=== PATIENT | male | born 1950 | race Caucasian/White ===

== ENCOUNTER → 2017-02-07 | Outpatient (CLI) | payer OTHER ==
--- NOTE | 2017-02-07 13:10 | MR ---
EXAMINATION TYPE: MR lumbar spine wo con DATE OF EXAM: 02/07/2017 12:37 PM COMPARISON: NONE HISTORY: 66-year-old male with low back pain TECHNIQUE: Multiplanar, multisequence images of the lumbar spine were acquired. FINDINGS: Vertebral body heights are preserved. Scattered chronic Schmorl's nodes are present. No suspicious bone marrow replacement. However, there is edematous Modic type I endplate change at L5 -S1 associated with moderate degenerative disc height loss, disc desiccation, vacuum phenomenon, and disc bulging. Additional variable mild disc desiccation throughout the lumbar spine and bulging discs. There is facet arthropathy mid to lower lumbar spine with bilateral L5 pars defects with grade 2 ante rolisthesis at L5-S1. The conus medullaris is normal. At T12-L1, no spinal canal or neuroforaminal stenosis. At L1-L2, mild diffuse disc bulge minimally narrowing the inferior right neural foramen. No significa nt spinal canal or neuroforaminal stenosis. At L2-L3, there is mild diffuse disc bulge which slightly impresses on the ventral thecal sac but parker s not cause any significant spinal canal stenosis. There is mild right and minimal inferior left neur oforaminal narrowing. At L3-L4, diffuse disc bulge with facet degenerative change. Changes result in mild to moderate bilat eral neuroforaminal stenosis without spinal canal stenosis. At L4-L5, diffuse disc bulge with facet degenerative change. Changes result in mild left and mild-to- moderate right neuroforaminal stenosis without spinal canal stenosis. At L5-S1, there is grade 2 anterolisthesis with uncovering of the posterior intervertebral disc and f acet degenerative change. Changes result in moderate bilateral neuroforaminal stenoses, greater on th e left. No spinal canal stenosis. No prevertebral or paravertebral soft tissue abnormality. IMPRESSION: 1. Bilateral L5 pars defects with a grade 2 anterolisthesis at L5-S1 and associated moderate degenera tive disc disease and edematous Modic type I endplate change at this level. There is moderate bilater al neuroforaminal stenosis here slightly greater on the left. 2. Variable mild multilevel degenerative disc disease and scattered facet arthropathy. Changes result in variable mild neuroforaminal stenoses as outlined above, mild to moderate near foraminal stenoses at L3-L4 and L4-L5.
== END ==
LOC: RADMRIMAIN 11:55
PROVIDERS: ATTEND Nurse Practitioner
DX: M43.17 Spondylolisthesis, lumbosacral region (principal); M51.37 Other intervertebral disc degeneration, lumbosacral region; M99.73 Connective tissue and disc stenosis of intervertebral foramina of lumbar region; M46.96 Unspecified inflammatory spondylopathy, lumbar region
CPT/HCPCS: 72148

== ENCOUNTER → 2023-06-06 | Outpatient (CLI) | payer OTHER ==
--- NOTE | 2023-06-06 12:26 | XR ---
EXAMINATION TYPE: XR shoulder complete RT DATE OF EXAM: 06/06/2023 COMPARISON: NONE HISTORY: Pain TECHNIQUE: Three views are submitted. FINDINGS: The osseous structures are intact. There is no acute fracture or dislocation. Diffuse osteopenia wit h moderate to severe AC joint arthropathy with spur extending along the inferior margin. Linear subse gmental consolidation right lung base most typical of atelectasis. IMPRESSION: 1. AC joint arthropathy with a spur noted inferiorly correlate for impingement of the rotator cuff.
== END | disposition home or self-care (01) ==
LOC: RADXRMAIN 11:05
PROVIDERS: ATTEND Social Worker Clinical
DX: M19.011 Primary osteoarthritis, right shoulder (principal)

== ENCOUNTER → 2023-06-30 | Outpatient (CLI) | payer OTHER ==
--- NOTE | 2023-06-30 13:13 | XR ---
EXAMINATION TYPE: XR hand complete bilateral DATE OF EXAM: 06/30/2023 CLINICAL HISTORY: pain TECHNIQUE: Frontal, lateral and oblique images of the bilateral hands are obtained. COMPARISON: None. FINDINGS: There is no acute fracture/dislocation evident. Moderate degenerative change involving the first carpal metacarpal joints bilaterally with bony sclerosis and mild fragmentation noted. The ove rlying soft tissue appears unremarkable. IMPRESSION: There is no acute fracture or dislocation ICD 10 NO FRACTURE, INITIAL EVALUATION
--- NOTE | 2023-07-04 14:28 | MR ---
EXAMINATION TYPE: MR shoulder RT wo con DATE OF EXAM: 06/30/2023 12:30 PM COMPARISON: NONE HISTORY: Right shoulder pain TECHNIQUE: Multiplanar multispin echo imaging of the right shoulder was performed. FINDINGS: Rotator cuff : Full thickness retracted tear of the supraspinatus tendon with fluid filled gap 3.4 cm . Partial tear of the infraspinatus tendon. Subscapularis component is intact. Bursa: No bursal effusion or thickening is seen. Musculature: There is no muscular tear, contusion, or atrophy. Acromioclavicular joint : Elevation of the humeral head relative to the central glenoid axis. Marked narrowing of the subacromial joint space. Moderate AC joint arthropathy. Osseous structures : There are no fractures or regions of abnormal bone marrow signal intensity. Mild cystic degenerative change greater humeral tuberosity. Long biceps tendon : The biceps tendon is normally situated within the bicipital groove. No complete or partial biceps tendon tear is present. Glenohumeral Joint fluid : Subcoracoid fluid collection measures 3.1 x 1.3 cm and may reflect a gangl ion cyst. Cartilage and Bone : No focal hyaline cartilage defects are noted. No Hill-Sachs, reverse Hill-Sachs, or bony Bankart lesions are seen. Labrum : There are no SLAP or soft tissue Bankart lesions. No paralabral cysts are seen. OTHER FINDINGS : none IMPRESSION: 1. Complete retracted tear of the supraspinatus tendon with partial tear of the infraspinatus tendon. Marked subacromial joint space narrowing. 2. Probable ganglion cyst subcoracoid region.
== END | disposition home or self-care (01) ==
LOC: RADMRIMAIN 11:06
PROVIDERS: ATTEND Family Medicine
DX: M75.121 Complete rotator cuff tear or rupture of right shoulder, not specified as traumatic (principal); M79.641 Pain in right hand; M79.642 Pain in left hand

== ENCOUNTER 2023-07-18 07:19 | Day surgery (SDC) | payer MEDICARE, OTHER ==
[2023-07-13 16:17] VITALS: BMI 35.2
[2023-07-18] MEDS ORDERED: LIDOCAINE 1% (10MG/ML) FOR IV START INTRADERMA PRN (07:34)
[2023-07-18] MEDS ORDERED: LACTATED RINGERS 1,000 ML IV SCH (07:34)
[2023-07-18 07:47] VITALS: TEMP 98.1
[2023-07-18] MEDS ORDERED: PROPOFOL 10 MG/ML 20 ML VIAL IV ONE (08:31)
--- NOTE | 2023-07-18 08:50 | P.PCN ---
Date of Procedure: 07/18/23 Procedure(s) Performed: BRIEF HISTORY: Patient is a 73-year-old pleasant white male scheduled for an elective colonoscopy as a part of evaluation of prior history of colon polyps. Last colonoscopy was 5 years ago. PROCEDURE PERFORMED: Colonoscopy with snare polypectomy. PREOPERATIVE DIAGNOSIS: History of colon polyps. IV sedation per Anesthesia. PROCEDURE: After informed consent was obtained, the patient, was brought into the endoscopy unit. IV sedation was administered by Anesthesia under continuous monitoring. Digital rectal examination was normal. Initially the Olympus CF-160 flexible video colonoscope was then inserted in the rectum, gradually advanced into the cecum without any difficulty. Careful examination was performed as the scope was gradually being withdrawn. Ileocecal valve and the appendiceal orifice were visualized and appeared normal. Prep was excellent. Mucosa of the cecum, normal. In the ascending colon there was a 5 mm and 7 mm polyp removed by cold snare polypectomy. In the descending colon there was a 4 mm and 6 mm sessile polyp removed by cold snare polypectomy. Rest of the ascending colon, transverse colon, descending colon, sigmoid colon, and rectum appeared normal. Scattered sigmoid diverticulosis. Retroflexion was performed in the rectum and no lesions were seen. The patient tolerated the procedure well. IMPRESSION: 5 mm and 7 mm ascending colon polyp status post polypectomy 4 mm and 6 mm descending colon polyps status post polypectomy Scattered sigmoid diverticulosis RECOMMENDATIONS: Findings of this examination were discussed with the patientas well as a his family. He was advised to follow with the biopsy results. If the biopsy result adenoma he can have a repeat colonoscopy in 3 years.].
[2023-07-18 09:10] VITALS: PULSE 56; RESP 16
[2023-07-18 09:26] VITALS: BP 142/80
== END 2023-07-18 09:37 ==
LOC: ORWHC2ENDO 07:19
PROVIDERS: ATTEND Internal Medicine Gastroenterology
DX: Z12.11 Encounter for screening for malignant neoplasm of colon (principal); D12.4 Benign neoplasm of descending colon; D12.3 Benign neoplasm of transverse colon; K21.9 Gastro-esophageal reflux disease without esophagitis; K57.30 Diverticulosis of large intestine without perforation or abscess without bleeding; E78.5 Hyperlipidemia, unspecified; F32.A Depression, unspecified; Z86.010 Personal history of colon polyps; Z79.899 Other long term (current) drug therapy; Z87.891 Personal history of nicotine dependence; Z88.8 Allergy status to other drugs, medicaments and biological substances
CPT/HCPCS: 88305; 45385; J2704

== ENCOUNTER → 2023-08-03 | Outpatient (CLI) | payer MEDICARE ==
--- NOTE | 2023-08-03 16:16 | XR ---
"EXAMINATION TYPE: XR ribs RT DATE OF EXAM: 08/03/2023 COMPARISON: NONE HISTORY: Pain TECHNIQUE: 5 views of the right ribs are submitted FINDINGS: Hypertrophic AC joint arthropathy. Right lower lobe subsegmental consolidation. There are d eformities involving the right third and fourth ribs anterolaterally. A deformity involving the anter ior margin of the right sixth rib there is a lucency involving the posterior lateral right eighth rib . IMPRESSION: 1. Lucency involving the posterior lateral right eighth rib, anterior right sixth rib and anterior ma rgins of the right third and fourth rib correlate for point tenderness for acute fracture. 2. Right lower lobe consolidation and small effusion A Yellow level critical message alert has been initiated for Willard Berg MD via the [employer] | Critical Results System on 08/03/2023 4:14 PM. This message alert has been sent to Willard culp MD via the preferences provided by the clinician for the receipt of Radiology Critical Findings. Brenden essage ID [id number]."
== END | disposition home or self-care (01) ==
LOC: RADXRMAIN 15:26
PROVIDERS: ATTEND Internal Medicine
DX: R07.81 Pleurodynia (principal); J90 Pleural effusion, not elsewhere classified; M89.8X8 Other specified disorders of bone, other site

== ENCOUNTER → 2024-05-20 | Outpatient (CLI) | payer OTHER ==
--- NOTE | 2024-05-20 15:24 | XR ---
EXAMINATION TYPE: XR knee complete bilateral DATE OF EXAM: 05/20/2024 2:57 PM CLINICAL INDICATION:Male, 74 years old with history of M25.569 PAIN IN UNSPECIFIED KNEE; [facility] COMPARISON: None. TECHNIQUE: XR knee complete bilateral; examined in Frontal, lateral and oblique projections. FINDINGS: No evidence of any acute osseous pathology, soft tissue swelling, or joint effusion is no mino. Tricompartmental osteophyte formation involving the femoral condyles, tibial plateau and patella . Mild joint space narrowing. IMPRESSION: 1. No acute osseous pathology. 2. Moderate tricompartmental osteoarthritic changes.
== END | disposition home or self-care (01) ==
LOC: RADXRMAIN 14:17
PROVIDERS: ATTEND Family Medicine
DX: M17.0 Bilateral primary osteoarthritis of knee (principal)

== ENCOUNTER 2024-12-12 17:21 | Observation (INO) | payer MEDICARE ==
--- NOTE | 2024-12-12 17:43 | ED ---
General Adult HPI - General Chief complaint: Fall Stated complaint: Fall Time Seen by Provider: 12/12/24 17:25 Source: patient, EMS, RN notes reviewed Mode of arrival: EMS Limitations: no limitations - History of Present Illness Initial comments: Patient is a 74-year-old male presenting to the emergency department with concern for fall. Patient was standing on a chair when he lost his balance and fell. Patient landed on his back and then struck his head. No loss of consciousness. No syncope. No neck or back pain. No chest pain or dyspnea. No abdominal pain. No extremity injury. Patient denies any history of dysrhythmia. No history of A-fib. Patient denies any blood thinner use. - Related Data Home Medications Medication Instructions Recorded Confirmed Dextroamphetamine/Amphetamine 10 mg PO DAILY 07/13/23 07/18/23 [Adderall Xr 10 mg Capsule] Fluticasone Nasal [place] [Flonase 1 spray EA NOSTRIL DAILY 07/13/23 07/18/23 Nasal [place]] Pravastatin Sodium [Pravachol] 20 mg PO HS 07/13/23 07/18/23 busPIRone HCL [Buspar] 15 mg PO BID 07/13/23 07/18/23 Allergies Allergy/AdvReac Type Severity Reaction Status Date / Time erythromycin base Allergy Rash/Hives Verified 12/12/24 17:38 Review of Systems ROS Statement: Those systems with pertinent positive or pertinent negative responses have been documented in the HPI. ROS Other: All systems not noted in ROS Statement are negative. Constitutional: Denies: fever Eyes: Denies: eye pain ENT: Denies: ear pain Respiratory: Denies: dyspnea Cardiovascular: Denies: chest pain, palpitations Endocrine: Denies: fatigue Gastrointestinal: Denies: abdominal pain Neurological: Denies: headache, weakness, confusion Past Medical History Past Medical History: Hyperlipidemia, Skin Disorder Additional Past Medical History / Comment(s): diverticulitis History of Any Multi-Drug Resistant Organisms: None Reported Past Surgical History: Appendectomy, Cholecystectomy, Hernia Repair Additional Past Surgical History / Comment(s): Egd, colonoscopy, deviated septum hemorrhoidectomy Past Anesthesia/Blood Transfusion Reactions: No Reported Reaction Additional Past Anesthesia/Blood Transfusion Reaction / Comment(s): no blood transfusion Past Psychological History: No Psychological Hx Reported Smoking Status: Never smoker - Past Family History Father Additional Family Medical History / Comment(s): CLL General Exam Limitations: no limitations General appearance: alert, in no apparent distress Head exam: Present: atraumatic, normocephalic Eye exam: Present: normal appearance, PERRL, EOMI Neck exam: Present: normal inspection. Absent: tenderness Respiratory exam: Present: normal lung sounds bilaterally Cardiovascular Exam: Present: tachycardia, irregular rhythm GI/Abdominal exam: Present: soft. Absent: tenderness Extremities exam: Present: normal inspection. Absent: full ROM, tenderness Neurological exam: Present: alert, oriented X3, CN II-XII intact. Absent: motor sensory deficit Expanded Neurological exam: Present: protecting the airway Speech: Present: fluid speech Cranial nerves: EOM's Intact: Normal Motor strength exam: RUE: 5, LUE: 5, RLE: 5, LLE: 5 Eye Response: (4) open spontaneously Motor Response: (6) obeys commands Verbal Response: (5) oriented Psychiatric exam: Present: normal affect, normal mood Skin exam: Present: normal color Course Vital Signs 12/12/24 12/12/24 17:34 19:15 Temperature 98.1 F Pulse Rate 102 H 102 H Respiratory 18 18 Rate Blood Pressure 119/92 113/74 O2 Sat by Pulse 99 97 Oximetry EKG Findings - EKG Results: EKG: interpreted by ERMD (PVCs present. Nonspecific T waves. Premature complexes also present), normal axis EKG shows: tachycardia, atrial fibrillation Medical Decision Making - Medical Decision Making EKG #2 interpreted by myself also shows A-fib with a rate of 101. Normal axis. Nonspecific T waves. Normal QRS. Premature complexes also present Was pt. sent in by a medical professional or institution (, PA, COMMERCIAL ACCOUNT MANAGER, urgent care, hospital, or long term...) When possible be specific @ -No Did you speak to anyone other than the patient for history (EMS, parent, family, police, friend...)? What history was obtained from this source @ -No Did you review nursing and triage notes (agree or disagree)? Why? @ -I reviewed and agree with nursing and triage notes Were old charts reviewed (outside hosp., previous admission, EMS record, old EKG, old radiological studies, urgent care reports/EKG's, long term records)? Report findings @ -Previous outpatient x-ray also shows elevated left hemidiaphragm Differential Diagnosis (chest pain, altered mental status, abdominal pain women, abdominal pain men, vaginal bleeding, weakness, fever, dyspnea, syncope, head ache, dizziness, GI bleed, back pain, seizure, CVA, palpatations, mental health, musculoskeletal)? @ -Differential Palpitations Ventricular arrhythmias, atrial arrhythmias, myocardial infarction, anemia, thyrotoxicosis, electrolyte imbalance, hypokalemia, pulmonary embolism, pulmonary disease, drugs, alcohol, anxiety, stress.... This is not meant to be an all-inclusive list. EKG interpreted by me (3pts min.). @ -As above X-rays interpreted by me (1pt min.). @ -Chest x-ray shows elevated left hemidiaphragm CT interpreted by me (1pt min.). @ -CT brain and cervical spine without acute abnormality U/S interpreted by me (1pt. min.). @ -None done What testing was considered but not performed or refused? (CT, X-rays, U/S, labs)? Why? @ -None What meds were considered but not given or refused? Why? @ -Anticoagulation held at this time secondary to patient just has had prior to Did you discuss the management of the patient with other professionals (professionals i.e. , PA, COMMERCIAL ACCOUNT MANAGER, lab, RT, psych nurse, social work msw, turbo generator oiler, teacher, chief growth officer, catalytic case operator)? Give summary @ -Dr. Oseguera who will admit covering Dr. Sarkar Was smoking cessation discussed for >3mins.? @ -No Was critical care preformed (if so, how long)? @ -No Were there social determinants of health that impacted care today? How? (Homelessness, low income, unemployed, alcoholism, drug addiction, transportation, low edu. Level, literacy, decrease access to med. care, long-term, rehab)? @ -No Was there de-escalation of care discussed even if they declined (Discuss DNR or withdrawal of care, Hospice)? DNR status @ -No What co-morbidities impacted this encounter? (DM, HTN, Smoking, COPD, CAD, Cancer, CVA, ARF, Chemo, Hep., AIDS, mental health diagnosis, sleep apnea, morbid obesity)? @ -None Was patient admitted / discharged? Hospital course, mention meds given and route, prescriptions, significant lab abnormalities, going to OR and other pertinent info. @ -Patient presents with fall and head injury, over age [address] unremarkable however patient has new onset A-fib. Patient reevaluated and updated. Patient will be admitted with cardiac consult and echo. Admission orders written Undiagnosed new problem with uncertain prognosis? @ -No Drug Therapy requiring intensive monitoring for toxicity (Heparin, Nitro, Insulin, Cardizem)? @ -No Were any procedures done? @ -No Diagnosis/symptom? @ -Head injury, new onset A-fib Acute, or Chronic, or Acute on Chronic? @ -Acute, acute threat to cardiac function t Uncomplicated (without systemic symptoms) or Complicated (systemic symptoms)? @ -Default Side effects of treatment? @ -No Exacerbation, Progression, or Severe Exacerbation? @ -No Poses a threat to life or bodily function? How? (Chest pain, USA, MD, pneumonia, PE, COPD, DKA, ARF, appy, cholecystitis, CVA, Diverticulitis, Homicidal, Suicidal, threat to staff... and all critical care pts) @ -Threat to cardiac function - Lab Data Result diagrams: 12/12/24 17:46 12/12/24 17:46 Lab Results 12/12/24 12/12/24 12/12/24 Range/Units 17:46 17:46 17:46 WBC 7.1 (3.8-10.6) k/uL RBC 4.78 (4.30-5.90) m/uL Hgb 14.5 (13.0-17.5) gm/dL Hct 44.5 (39.0-53.0) % MCV 92.9 (80.0-100.0) fL MCH 30.3 (25.0-35.0) pg MCHC 32.5 (31.0-37.0) g/dL RDW 12.9 (11.5-15.5) % Plt Count 325 (150-450) k/uL MPV 6.6 Neutrophils % 69 % Lymphocytes % 20 % Monocytes % 6 % Eosinophils % 3 % Basophils % 1 % Neutrophils # 4.9 (1.3-7.7) k/uL Lymphocytes # 1.4 (1.0-4.8) k/uL Monocytes # 0.4 (0-1.0) k/uL Eosinophils # 0.2 (0-0.7) k/uL Basophils # 0.1 (0-0.2) k/uL PT 11.4 (10.0-12.5) sec INR 1.0 (<1.2) APTT 25.1 (22.0-30.0) sec Sodium 136 L (137-145) mmol/L Potassium 4.5 (3.5-5.1) mmol/L Chloride 101 (98-107) mmol/L Carbon Dioxide 27 (22-30) mmol/L Anion Gap 8 mmol/L BUN 23 H (9-20) mg/dL Creatinine 1.07 (0.66-1.25) mg/dL Est GFR (CKD-EPI)AfAm 78 (>60 ml/min/1.73 sqM) Est GFR (CKD-EPI)NonAf 68 (>60 ml/min/1.73 sqM) Glucose 99 (74-99) mg/dL Calcium 9.7 (8.4-10.2) mg/dL Magnesium 2.1 (1.6-2.3) mg/dL Total Bilirubin 0.6 (0.2-1.3) mg/dL AST 30 (17-59) U/L ALT 37 (4-49) U/L Alkaline Phosphatase 90 (38-126) U/L Troponin I (0.000-0.034) ng/mL Total Protein 7.1 (6.3-8.2) g/dL Albumin 4.1 (3.5-5.0) g/dL TSH 1.240 (0.465-4.680) mIU/L Free T4 1.04 (0.78-2.19) ng/dL 12/12/24 Range/Units 17:46 WBC (3.8-10.6) k/uL RBC (4.30-5.90) m/uL Hgb (13.0-17.5) gm/dL Hct (39.0-53.0) % MCV (80.0-100.0) fL MCH (25.0-35.0) pg MCHC (31.0-37.0) g/dL RDW (11.5-15.5) % Plt Count (150-450) k/uL MPV Neutrophils % % Lymphocytes % % Monocytes % % Eosinophils % % Basophils % % Neutrophils # (1.3-7.7) k/uL Lymphocytes # (1.0-4.8) k/uL Monocytes # (0-1.0) k/uL Eosinophils # (0-0.7) k/uL Basophils # (0-0.2) k/uL PT (10.0-12.5) sec INR (<1.2) APTT (22.0-30.0) sec Sodium (137-145) mmol/L Potassium (3.5-5.1) mmol/L Chloride (98-107) mmol/L Carbon Dioxide (22-30) mmol/L Anion Gap mmol/L BUN (9-20) mg/dL Creatinine (0.66-1.25) mg/dL Est GFR (CKD-EPI)AfAm (>60 ml/min/1.73 sqM) Est GFR (CKD-EPI)NonAf (>60 ml/min/1.73 sqM) Glucose (74-99) mg/dL Calcium (8.4-10.2) mg/dL Magnesium (1.6-2.3) mg/dL Total Bilirubin (0.2-1.3) mg/dL AST (17-59) U/L ALT (4-49) U/L Alkaline Phosphatase (38-126) U/L Troponin I <0.012 (0.000-0.034) ng/mL Total Protein (6.3-8.2) g/dL Albumin (3.5-5.0) g/dL TSH (0.465-4.680) mIU/L Free T4 (0.78-2.19) ng/dL Disposition Clinical Impression: New onset a-fib Disposition: ADMITTED IP TO THIS HOSP Is patient prescribed a controlled substance at d/c from ED?: No Referrals: Vilma Hughes MD [Primary Care Provider] - 1-2 days Time of Disposition: 20:15
[2024-12-12 17:53] LABS: Basophils # (A) 0.1 k/uL (0-0.2); Basophils % (A) 1 %; Eosinophils # (A) 0.2 k/uL (0-0.7); Eosinophils % (A) 3 %; HCT 44.5 % (39.0-53.0); HGB 14.5 gm/dL (13.0-17.5); Lymphocytes # (A) 1.4 k/uL (1.0-4.8); Lymphocytes % (A) 20 %; MCH 30.3 pg (25.0-35.0); MCHC 32.5 g/dL (31.0-37.0); MCV 92.9 fL (80.0-100.0); Mean Platelet Volume 6.6; Monocytes # (A) 0.4 k/uL (0-1.0); Monocytes % (A) 6 %; Neutrophils # (A) 4.9 k/uL (1.3-7.7); Neutrophils % (A) 69 %; Platelet Count 325 k/uL (150-450); RBC 4.78 m/uL (4.30-5.90); RDW 12.9 % (11.5-15.5); WBC 7.1 k/uL (3.8-10.6)
[2024-12-12 18:02] LABS: Partial Thromboplastin Time 25.1 sec (22.0-30.0); Prothrombin Time 11.4 sec (10.0-12.5)
[2024-12-12 18:09] LABS: ALT 37 U/L (4-49); AST 30 U/L (17-59); African American GFR (CKD) 78 (>60 ml/min/1.73 sqM); Albumin 4.1 g/dL (3.5-5.0); Alkaline Phosphatase 90 U/L (38-126); Anion Gap 8 mmol/L; Blood Urea Nitrogen 23 mg/dL (9-20); Calcium 9.7 mg/dL (8.4-10.2); Carbon Dioxide 27 mmol/L (22-30); Chloride 101 mmol/L (98-107); Glucose 99 mg/dL (74-99); Magnesium 2.1 mg/dL (1.6-2.3); Non-African American GFR(CKD) 68 (>60 ml/min/1.73 sqM); Potassium 4.5 mmol/L (3.5-5.1); Sodium 136 mmol/L (137-145); Total Bilirubin 0.6 mg/dL (0.2-1.3); Total Protein 7.1 g/dL (6.3-8.2)
--- NOTE | 2024-12-12 18:34 | CT ---
EXAMINATION TYPE: CT brain sera wo con DATE OF EXAM: 12/12/2024 6:15 PM COMPARISON: None. CLINICAL INDICATION: Male, 74 years old with history of fall, Fall, hit back of head, No LOC., pain TECHNIQUE: CT of the brain is performed utilizing 3 mm thick sections through the posterior fossa and 3 mm thick sections through the remaining calvarium. Study is performed within 24 hours of arrival to the hospital. Contrast used: mL of , (none if empty) CT DLP: 1598.6 mGycm, Automated exposure control for dose reduction was used. FINDINGS: No abnormal hyperdensity is present to suggest an acute intracranial hemorrhage. No mass lesion is evident. No acute infarcts are evident. Ventricles and sulci are appropriate for the patient age. There is an air-fluid level within the left maxillary sinus. Correlate for acute left maxillary sinus itis. Remaining paranasal sinuses and mastoid air cells are clear IMPRESSIONS: 1. No acute intracranial process. Follow-up MRI can be performed as clinically indicated. CT cervical spine. COMPARISON: None TECHNIQUE: CT of the cervical spine is performed in the axial plane at 2 mm thick sections. Reconstr ucted images in the coronal, and sagittal plane are reviewed on the computer. FINDINGS: No acute fractures are evident. Spina bifida occulta of C1 is present. Vertebral body alignment is normal. C5-6 disc space narrowing is present. Milder disc space is present posteriorly C6-7 C7-T1 Vertebral body heights are preserved. No spinal canal stenosis is evident. No neural foraminal stenosis is evident. IMPRESSION: 1. No acute osseous abnormality cervical spine. 2. Degenerative disc changes C5-6. [facility], Workstation: [facility], 12/12/2024 6:32 PM
[2024-12-12 19:06] LABS: T4, Free (Free Thyroxine) 1.04 ng/dL (0.78-2.19)
--- NOTE | 2024-12-12 19:26 | XR ---
EXAMINATION TYPE: XR chest 2V DATE OF EXAM: 12/12/2024 6:59 PM COMPARISON: 03/01/2024 CLINICAL INDICATION: Male, 74 years old with history of dysrhythmia, TECHNIQUE: XR chest 2V view(s) obtained. FINDINGS: The heart size is normal. The pulmonary vasculature is normal. The lungs are clear. There is chronic elevation of the left diaphragm. Focal eventration remains pre sent on the right diaphragm. IMPRESSION: 1. No acute pulmonary process. [facility], Workstation: [facility], 12/12/2024 7:24 PM
[2024-12-12] MEDS ORDERED: NALOXONE 0.4 MG/ML 1 ML VIAL IV PRN (20:15)
[2024-12-12] MEDS ORDERED: ACETAMINOPHEN TAB 325 MG TAB PO PRN (20:15)
[2024-12-12] MEDS: clonazePAM 0.5 MG TAB PO PRN (22:23)
[2024-12-12] MEDS: MELATONIN 3 MG TABLET PO SCH (22:23)
[2024-12-12] MEDS: diphenhydrAMINE 25 MG CAP PO SCH (22:23)
--- NOTE | 2024-12-13 09:45 | P.HPIM ---
History of Present Illness H&P Date: 12/13/24 Samy Lowry is a 74-year-old male patient who presented to the ER after sustaining a fall. Patient states he was reaching up on a shelf while standing on a chair and lost his balance. Patient reports he fell on his back and did hit his head but no loss of consciousness no syncopal episode prior to incident complains of no other pains to hips knees or shoulders. Patient has a past medical history of hyperlipidemia and diverticulitis. CT of head and cervical spine completed showing no acute intracranial process. CT of spine showing no acute osseous abnormality of the cervical spine. Degenerative disc changes of C5-C6. Lab work completed showing white blood cell 7.1, hemoglobin 14.5, cr eatinine 1.07, bun 23 troponins negative x 3. TSH level 1.240. EKG completed showing atrial fibrillation with rapid ventricular response. Patient denies history of A-fib. Chest x-ray completed showing no acute pulmonary process. Patient denies any recent illness. Patient denies feeling of chest pain or shortness of breath. At this time patient will be admitted cardiology services consulted. 2D echo has been ordered. Review of Systems Please refer to HPI otherwise unremarkable Past Medical History Past Medical History: Hyperlipidemia, Skin Disorder Additional Past Medical History / Comment(s): diverticulitis History of Any Multi-Drug Resistant Organisms: None Reported Past Surgical History: Appendectomy, Cholecystectomy, Hernia Repair Additional Past Surgical History / Comment(s): Egd, colonoscopy, deviated sept um hemorrhoidectomy Past Anesthesia/Blood Transfusion Reactions: No Reported Reaction Additional Past Anesthesia/Blood Transfusion Reaction / Comment(s): no blood transfusion Past Psychological History: No Psychological Hx Reported Smoking Status: Never smoker Past Alcohol Use History: Occasional Additional Past Alcohol Use History / Comment(s): quit 1979 Past Drug Use History: None Reported Additional Drug Use History / Comment(s): cbd oil - Past Family History Father Additional Family Medical History / Comment(s): CLL Medications and Allergies Home Medications Medication Instructions Recorded Confirmed Type Dextroamphetamine/Amphetamine 10 mg PO DAILY 07/13/23 12/12/24 History [Adderall Xr 10 mg Capsule] Fluticasone Nasal [place] [Flonase 1 spray EA NOSTRIL BID 07/13/23 12/12/24 History Nasal [place]] Doxepin (Unknown Strength) 1 dose PO HS 12/12/24 12/12/24 History Lamictal (Unknown Strength) 1 dose PO BID 12/12/24 12/12/24 History Melatonin 3 mg PO HS 12/12/24 12/12/24 History Pravastatin (Unknown Strength) 1 dose PO HS 12/12/24 12/12/24 History Tamsulosin [Flomax] 1 dose PO DIRECTED 12/12/24 12/12/24 History Testosterone [Androgel 1.62%] 1 dose TRANSDERM DIRECTED 12/12/24 12/12/24 History clonazePAM [KlonoPIN] 0.5 mg PO BID PRN 12/12/24 12/12/24 History diphenhydrAMINE HCL [Children's 50 mg PO HS 12/12/24 12/12/24 History Benadryl Allergy] Allergies Allergy/AdvReac Type Severity Reaction Status Date / Time erythromycin base Allergy Rash/Hives Verified 12/12/24 20:22 Physical Exam Vitals: Vital Signs Temp Pulse Pulse Resp BP BP Pulse Ox 12/13/24 08:00 97.5 F L 50 L 18 122/79 96 12/13/24 04:00 98.1 F 94 18 109/63 97 12/13/24 01:46 18 12/12/24 23:51 98 18 122/78 98 12/12/24 22:00 97.9 F 94 18 130/83 98 12/12/24 21:19 108 H 18 122/85 97 12/12/24 19:15 102 H 18 113/74 97 12/12/24 17:34 98.1 F 102 H 18 119/92 99 Intake and Output 12/12/24 12/13/24 12/13/24 22:59 06:59 14:59 Intake Total 190 Balance 190 Intake: IV 10 Invasive Line 1 10 Oral 180 Other: Voiding Method Toilet # Voids 2 Weight 122.47 kg 116.2 kg Head normocephalic Neck supple Lungs clear to auscultation bilaterally no wheezing or crackles Heart irregular heartbeat known atrial fibrillation Abdomen is soft nontender nondistended positive bowel sounds no hepatosplenomegaly Extremities no edema Neuro alert and orientated to 3 Results CBC & Chem 7: 12/12/24 17:46 12/12/24 17:46 Labs: Abnormal Lab Results - Last 24 Hours (Table) 12/12/24 Range/Units 17:46 Sodium 136 L (137-145) mmol/L BUN 23 H (9-20) mg/dL Thrombosis Risk Factor Assmnt - Choose All That Apply Each Factor Represents 1 point: Obesity (BMI >25) Each Risk Factor Represents 3 Points: Age 75 years or older Thrombosis Risk Factor Assessment Total Risk Factor Score: 4 Thrombosis Risk Factor Assessment Level: Moderate Risk Assessment and Plan Assessment: 1. New onset atrial fibrillation 2. Episode of fall. No signs of injury 3. History of hyperlipidemia 4. History of diverticulitis At this time patient will be admitted Cardiology services consulted 2D echo ordered Repeat labs ordered Time with Patient: Greater than 30 (Greater than 60% of the total time spent in counseling and coordination of care)
[2024-12-13] MEDS: APIXABAN 5 MG TAB PO SCH (09:47)
[2024-12-13] MEDS: METOPROLOL TARTRATE 25 MG TAB PO SCH (09:47)
--- NOTE | 2024-12-13 10:36 | P.CRDCN ---
History of Present Illness History of present illness: HISTORY OF PRESENT ILLNESS: This is a 74-year-old male with a past medical history significant for hyperlipidemia, diverticulitis, and former nicotine dependence. 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 We have been asked to see the patient in consultation for new onset atrial fibrillation. Patient examined at the bedside. Patient presented to the hospital after having a fall at home. Patient states he has a history of vertigo and was reaching up to get something on a shelf w hile standing on a chair and became dizzy and lost his balance and fell. He denies losing consciousness. He denies any chest pain or pressure. She denies any shortness of breath. EKG on admission revealed atrial fibrillation with RVR. Patient denies any known history of atrial fibrillation. The patient remains in atrial fibrillation at the time of examination with a heart rate in the 80s90s. He reports a history of hyperlipidemia. Denies history of hypertension or diabetes. Denies any known history of CAD. He states that his mom and sister both have atrial fibrillation. He is a former cigarette smoker. He reports alcohol use about once a week. DIAGNOSTICS: - EKG reveals atrial fibrillation with no signs of acute ischemia. Bedside telemetry reveals atrial fibrillation/flutter with a heart rate in the 90s. - Chest xray negative for acute process - Laboratory data: WBC 7.1. Hemoglobin 14.5. Platelet count 325. Sodium 136. Potassium 4.5. BUN 23. Creatinine 1.07. Magnesium 2.1. Troponin negative x 3. TSH 1.240. - Current home cardiac medications include pravastatin 20 mg at night - No previous echocardiogram, stress test, or cardiac catheterization available in EMR for review REVIEW OF SYSTEMS: At the time of my exam: CONSTITUTIONAL: Denies fever or chills. HEENT: Denies blurred vision, vision changes, or eye pain. Denies hemoptysis CARDIOVASCULAR: Denies chest pain. Denies orthopnea. Denies PND. Denies palpitations RESPIRATORY: Denies shortness of breath. GASTROINTESTINAL: Denies abdominal pain. Denies nausea or vomiting. HEMATOLOGIC: Denies bleeding disorders. GENITOURINARY: Denies any blood in urine. SKIN: Denies pruitis. Denies rash. PHYSICAL EXAM: VITAL SIGNS: Reviewed. GENERAL: Well-developed in no acute distress. HEENT: Head is normocephalic. Pupils are equal, round. Sclerae anicteric. Mucous membranes of the mouth are moist. Neck supple. No JVD or thyromegaly LUNGS: Respirations even and unlabored. Lungs essentially clear to auscultation bilaterally. HEART: Irregular rate and rhythm. S1 and S2 heard. ABDOMEN: Soft. Nondistended. Nontender. EXTREMITIES: Normal range of motion. No clubbing or cyanosis. Peripheral pulses intact. No lower extremity edema NEUROLOGIC: Awake and alert. Oriented x 3. ASSESSMENT: Status post mechanical fall History of vertigo New onset atrial fibrillation/atypical atrial flutter with RVR, currently rate controlled History of hyperlipidemia Former nicotine dependence Obesity: BMI 34.7 PLAN: Obtain 2D echo to assess cardiac structure and function TSH checked and within normal limits Begin Eliquis 5mg BID Begin metoprolol tartrate 25mg BID Continue telemetry monitoring Patient may be discharged home this afternoon pending echo results Patient to follow-up postdischarge in the office with Dr. Ferreira Nurse practitioner note has been reviewed by physician. Signing provider agrees with the documented findings, assessment, and plan of care documented by SENIOR ADVISORY as a scribe. Past Medical History Past Medical History: Hyperlipidemia, Skin Disorder Additional Past Medical History / Comment(s): diverticulitis History of Any Multi-Drug Resistant Organisms: None Reported Past Surgical History: Appendectomy, Cholecystectomy, Hernia Repair Additional Past Surgical History / Comment(s): Egd, colonoscopy, deviated septum hemorrhoidectomy Past Anesthesia/Blood Transfusion Reactions: No Reported Reaction Additional Past Anesthesia/Blood Transfusion Reaction / Comment(s): no blood transfusion Past Psychological History: No Psychological Hx Reported Smoking Status: Never smoker Past Alcohol Use History: Occasional Additional Past Alcohol Use History / Comment(s): quit 1979 Past Drug Use History: None Reported Additional Drug Use History / Comment(s): cbd oil - Past Family History Father Additional Family Medical History / Comment(s): CLL Medications and Allergies Home Medications Medication Instructions Recorded Confirmed Type Dextroamphetamine/Amphetamine 10 mg PO DAILY 07/13/23 12/12/24 History [Adderall Xr 10 mg Capsule] Fluticasone Nasal [place] [Flonase 1 spray EA NOSTRIL BID 07/13/23 12/12/24 History Nasal [place]] Melatonin 3 mg PO HS 12/12/24 12/12/24 History Tamsulosin [Flomax] 0.4 mg PO HS 12/12/24 12/13/24 History Testosterone [Androgel 1.62%] 3 pump TRANSDERM DAILY 12/12/24 12/13/24 History clonazePAM [KlonoPIN] 0.5 mg PO BID PRN 12/12/24 12/12/24 History diphenhydrAMINE HCL [Children's 50 mg PO HS 12/12/24 12/12/24 History Benadryl Allergy] Doxepin HCl [SINEquan] 100 mg PO HS 12/13/24 12/13/24 History Pravastatin Sodium [Pravachol] 20 mg PO HS 12/13/24 12/13/24 History lamoTRIgine [LaMICtal] 150 mg PO BID 12/13/24 12/13/24 History Allergies Allergy/AdvReac Type Severity Reaction Status Date / Time erythromycin base Allergy Rash/Hives Verified 12/12/24 20:22 Physical Exam Vitals: Vital Signs Temp Pulse Pulse Resp BP BP Pulse Ox 12/13/24 08:00 97.5 F L 50 L 18 122/79 96 12/13/24 04:00 98.1 F 94 18 109/63 97 12/13/24 01:46 18 12/12/24 23:51 98 18 122/78 98 12/12/24 22:00 97.9 F 94 18 130/83 98 12/12/24 21:19 108 H 18 122/85 97 12/12/24 19:15 102 H 18 113/74 97 12/12/24 17:34 98.1 F 102 H 18 119/92 99 Intake and Output 12/12/24 12/13/24 12/13/24 22:59 06:59 14:59 Intake Total 190 Balance 190 Intake: IV 10 Invasive Line 1 10 Oral 180 Other: Voiding Method Toilet # Voids 2 Weight 122.47 kg 116.2 kg Results 12/12/24 17:46 12/12/24 17:46 Cardiac Enzymes 12/12/24 12/12/24 12/12/24 Range/Units 17:46 17:46 21:09 AST 30 (17-59) U/L Troponin I <0.012 <0.012 (0.000-0.034) ng/mL 12/13/24 Range/Units 00:03 AST (17-59) U/L Troponin I <0.012 (0.000-0.034) ng/mL Coagulation 12/12/24 Range/Units 17:46 PT 11.4 (10.0-12.5) sec APTT 25.1 (22.0-30.0) sec CBC 12/12/24 Range/Units 17:46 WBC 7.1 (3.8-10.6) k/uL RBC 4.78 (4.30-5.90) m/uL Hgb 14.5 (13.0-17.5) gm/dL Hct 44.5 (39.0-53.0) % Plt Count 325 (150-450) k/uL Comprehensive Metabolic Panel 12/12/24 Range/Units 17:46 Sodium 136 L (137-145) mmol/L Potassium 4.5 (3.5-5.1) mmol/L Chloride 101 (98-107) mmol/L Carbon Dioxide 27 (22-30) mmol/L BUN 23 H (9-20) mg/dL Creatinine 1.07 (0.66-1.25) mg/dL Glucose 99 (74-99) mg/dL Calcium 9.7 (8.4-10.2) mg/dL AST 30 (17-59) U/L ALT 37 (4-49) U/L Alkaline Phosphatase 90 (38-126) U/L Total Protein 7.1 (6.3-8.2) g/dL Albumin 4.1 (3.5-5.0) g/dL Current Medications Generic Name Dose Route Start Last Admin Trade Name Freq PRN Reason Stop Dose Admin Acetaminophen 650 mg 12/12/24 20:15 Acetaminophen Tab 325 Mg Tab PO Q6HR PRN Mild Pain or Fever > 100.5 Apixaban 5 mg 12/13/24 09:15 12/13/24 09:47 Apixaban 5 Mg Tab PO [address] Administration Protocol Clonazepam 0.5 mg 12/12/24 22:11 12/12/24 22:23 Clonazepam 0.5 Mg Tab PO 0.5 mg BID PRN Administration Insomnia Diphenhydramine HCl 50 mg 12/12/24 22:15 12/12/24 22:23 Diphenhydramine 25 Mg Cap PO [address] Administration Melatonin 3 mg 12/12/24 22:15 12/12/24 22:23 Melatonin 3 Mg Tablet PO [address] Administration Metoprolol Tartrate 25 mg 12/13/24 09:15 12/13/24 09:47 Metoprolol Tartrate 25 Mg Tab PO [address] Administration Naloxone HCl 0.2 mg 12/12/24 20:15 Naloxone 0.4 Mg/Ml 1 Ml Vial IV Q2M PRN Opioid Reversal Intake and Output 12/12/24 12/13/24 12/13/24 22:59 06:59 14:59 Intake Total 190 Balance 190 Intake: IV 10 Invasive Line 1 10 Oral 180 Other: Voiding Method Toilet # Voids 2 Weight 122.47 kg 116.2 kg 12/12/24 17:46 12/12/24 17:46
[2024-12-13 11:39] VITALS: BP 112/80; PULSE 69; RESP 17; TEMP 97.7
--- NOTE | 2024-12-13 16:15 | CA ---
Transthoracic Echo Report Name: Samy Lowry Age: 74 Gender: M : 1950 Exam Date: 12/13/2024 07:53 Exam Location: [place] [facility] Ht (in): 72 Wt (lb): 270 Ordering Physician: Arnav Celis DO Attending/Referring Phys: Cable Tender Vandana Hilton RDCS Procedure CPT: Indications: a fib Cardiac Hx: Technical Quality: Fair Contrast 1: Definity Total Dose (mL): 2 Contrast 2: Total Dose (mL): MEASUREMENTS (Male / Female) Normal Values 2D ECHO LV Diastolic Diameter PLAX 3.7 cm 4.2 - 5.9 / 3.9 - 5.3 cm LV Systolic Diameter PLAX 2.6 cm IVS Diastolic Thickness 1.2 cm 0.6 - 1.0 / 0.6 - 0.9 cm LVPW Diastolic Thickness 1.2 cm 0.6 - 1.0 / 0.6 - 0.9 cm LV Relative Wall Thickness 0.7 RV Internal Dim ED PLAX 2.0 cm LA Systolic Diameter LX 4.2 cm 3.0 - 4.0 / 2.7 - 3.8 cm LA Volume 81.9 cm??? 18 - 58 / 22 - 52 cm??? LA Volume Index 32.3 cm???/m??? 16 - 28 cm???/m??? M-MODE Aortic Root Diameter MM 3.7 cm LA Systolic Diameter MM 3.4 cm LA Ao Ratio MM 0.9 AV Cusp Separation MM 1.7 cm DOPPLER TR Peak Velocity 255.3 cm/s TR Peak Gradient 26.1 mmHg FINDINGS Left Ventricle Left ventricular ejection fraction is estimated at 50-55 %. Mildly increased septal wall thickness. No obvious regional wall motion abnormalities. Left ventricular cavity size normal. Mildly reduced global left ventricular systolic function. Right Ventricle Right ventricle not well visualized. Right ventricular systolic pressure within normal limits. Right Atrium Mild right atrial dilatation. Left Atrium Mildly increased left atrial diameter. Mildly increased left atrial volume. Mildly increased left atrial area. Mitral Valve Structurally normal mitral valve. Mild mitral regurgitation. No mitral stenosis. Aortic Valve Trileaflet aortic valve. No aortic valve stenosis or regurgitation. Tricuspid Valve Structurally normal tricuspid valve. Mild tricuspid regurgitation. No tricuspid stenosis. Pulmonic Valve Structurally normal pulmonic valve. Trace pulmonic regurgitation. No pulmonic stenosis. Pericardium No pericardial or pleural effusion. Aorta Aorta at upper limits of normal. CONCLUSIONS Left ventricular ejection fraction 50-55% Mild increased left ventricular wall thickness Mildly dilated left atrium Mild mitral regurgitation Mild tricuspid regurgitation Previewed by: Dr. Javi Barragan DO (Electronically Signed) Final Date: 13 December 2024 16:14
== END 2024-12-13 17:33 | disposition home health service (06) ==
LOC: EC 17:21 → 3SCARD 20:17
PROVIDERS: ADMIT Internal Medicine; ATTEND Internal Medicine
DX: I48.91 Unspecified atrial fibrillation (principal); I48.4 Atypical atrial flutter; I49.3 Ventricular premature depolarization; E78.5 Hyperlipidemia, unspecified; K57.90 Diverticulosis of intestine, part unspecified, without perforation or abscess without bleeding; M50.322 Other cervical disc degeneration at C5-C6 level; E66.9 Obesity, unspecified; Z68.34 Body mass index [BMI] 34.0-34.9, adult; S09.90XA Unspecified injury of head, initial encounter; W07.XXXA Fall from chair, initial encounter; Y92.009 Unspecified place in unspecified non-institutional (private) residence as the place of occurrence of the external cause; Z79.899 Other long term (current) drug therapy; Z88.1 Allergy status to other antibiotic agents; Z87.891 Personal history of nicotine dependence
CPT/HCPCS: 99285; 36415; 93005; 84439; 84481; 80053; 83735; 84443; 84484 ×2; 85025; 85610; 85730; 71046; 72125; 70450; G0378 ×2; C8929; Q9957; 93306

== ENCOUNTER 2025-04-23 19:34 | Inpatient (IN) | payer MEDICARE ==
--- NOTE | 2025-04-23 20:18 | ED ---
Abdominal Pain HPI - General Chief Complaint: Abdominal Pain Stated Complaint: Chest/Abd Pain Time Seen by Provider: 04/23/25 20:00 Source: patient, RN notes reviewed Mode of arrival: ambulatory Limitations: no limitations - History of Present Illness Initial Comments: This is a 75-year-old male who presents to the emergency department for abdominal pain. Patient has an abdominal hernia that he states is in the left mid to upper abdomen. States that he occasionally gets discomfort from this, however today the pain got much worse. Pain is localized to the mid to upper abdomen. Pain is largely centralized but slightly worse on the left-hand side. States that he is unable to eat anything and feels very nauseous. He did have a bowel movement today but does not believe he has passed any gas recently. MD Complaint: abdominal pain - Related Data Home Medications Medication Instructions Recorded Confirmed Dextroamphetamine/Amphetamine 10 mg PO DAILY 07/13/23 04/15/25 [Adderall Xr 10 mg Capsule] Fluticasone Nasal [place] [Flonase 1 spray EA NOSTRIL BID 07/13/23 04/15/25 Nasal [place]] Doxepin HCl [SINEquan] 100 mg PO HS 12/13/24 04/15/25 Atorvastatin [Lipitor] 20 mg PO HS 04/09/25 04/15/25 Testosterone Gel 1 applic TOPICAL DIRECTED 04/09/25 04/15/25 buPROPion HCL [Wellbutrin XL] 150 mg PO DAILY 04/09/25 04/15/25 clonazePAM [KlonoPIN] 0.5 mg PO DIRECTED PRN 04/09/25 04/15/25 lamoTRIgine [LaMICtal] 100 mg PO BID 04/09/25 04/15/25 Previous Rx's Medication Instructions Recorded Apixaban [Eliquis] 5 mg PO BID 30 Days #60 tab 12/13/24 Metoprolol Tartrate 25 mg PO BID #60 tab 01/09/25 Allergies Allergy/AdvReac Type Severity Reaction Status Date / Time erythromycin base Allergy Rash/Hives Verified 04/23/25 19:38 Review of Systems ROS Statement: Those systems with pertinent positive or pertinent negative responses have been documented in the HPI. ROS Other: All systems not noted in ROS Statement are negative. Past Medical History Past Medical History: Atrial Fibrillation, Hyperlipidemia, Hypertension Additional Past Medical History / Comment(s): diverticulitis, tinnitis History of Any Multi-Drug Resistant Organisms: None Reported Past Surgical History: Appendectomy, Cholecystectomy, Hernia Repair Additional Past Surgical History / Comment(s): EGD/colonoscopy, deviated septum repair, hemorrhoidectomy, vanna inguinal hernia Past Anesthesia/Blood Transfusion Reactions: No Reported Reaction Additional Past Anesthesia/Blood Transfusion Reaction / Comment(s): no blood transfusion Past Psychological History: ADD/ADHD, Anxiety, Depression, Panic Disorder, PTSD Smoking Status: Former smoker Past Alcohol Use History: Occasional Past Drug Use History: None Reported - Past Family History Father Additional Family Medical History / Comment(s): CLL General Exam Limitations: no limitations General appearance: alert, in no apparent distress Head exam: Present: atraumatic, normocephalic, normal inspection Respiratory exam: Present: normal lung sounds bilaterally. Absent: respiratory distress, wheezes, rales, rhonchi, stridor Cardiovascular Exam: Present: regular rate, normal rhythm GI/Abdominal exam: Present: soft, tenderness (Mid to upper abdomen). Absent: distended Neurological exam: Present: alert, oriented X3, CN II-XII intact Psychiatric exam: Present: normal affect, normal mood Skin exam: Present: warm, dry, intact, normal color. Absent: rash Course Vital Signs 04/23/25 04/24/25 19:35 00:27 Temperature 97.6 F Pulse Rate 72 76 Respiratory 18 17 Rate Blood Pressure 136/88 157/90 O2 Sat by Pulse 94 L 97 Oximetry Medical Decision Making - Medical Decision Making This is a 75-year-old male who presents to the emergency department for abdominal pain. Was pt. sent in by a medical professional or institution? @ -No Did you speak to anyone other than the patient for history? @ -No Did you review nursing and triage notes? @ -Yes, and I agree, it is accurate with regards to the patient's symptoms. Were old charts reviewed? @ -No Differential Diagnosis? @ -Differential Abdominal Pain Men: Appendicitis, cholecystitis, diverticulosis, ischemic bowel, pancreatitis, hepatitis, UTI, gastroenteritis, AAA, incarcerated hernia, bowel obstruction, constipation, inflammatory bowel, hepatitis, peptic ulcer disease, splenic infarction, perforated viscus, testicular torsion, this is not meant to be an all-inclusive list EKG interpreted by me (3pts min.)? @ -EKG interpreted by me demonstrating the following: Sinus rhythm. Ventricular rate 66 bpm, WV interval 175 ms, QRS duration 102 ms, QTc 409 ms. X-rays interpreted by me (1pt min.)? @ -Not obtained CT interpreted by me (1pt min.)? @ -CT scan of the chest obtained. My interpretation identifies no localized consolidations. CT scan of the abdomen and pelvis obtained. My interpretation identifies dilated fluid-filled small bowel loops. U/S interpreted by me (1pt. min.)? @ -Not obtained What testing was considered but not performed? (CT, X-rays, U/S, labs)? Why? @ -None What meds were considered but not given? Why? @ -None Did you discuss the management of the patient with other professionals? @ -Yes, Dr. Oseguera, who accepts the patient for admission. Did you reconcile home meds? @ -No Was smoking cessation discussed for >3mins.? @ -No Was critical care preformed (if so, how long)? @ -No Were there social determinants of health that impacted care today? How? (Homelessness, low income, unemployed, alcoholism, drug addiction, transportation, low edu. Level, literacy, decrease access to med. care, alf, r ehab)? @ -No Was there de-escalation of care discussed even if they declined? (Discuss DNR or withdrawal of care, Hospice)? @ -No What co-morbidities impacted this encounter? (DM, HTN, Smoking, COPD, CAD, Cancer, CVA, Hep., AIDS, mental health diagnosis, sleep apnea, morbid obesity)? @ -None Was patient admitted / discharged? @ -Admitted. Lab work demonstrates mild leukocytosis and is otherwise unremarkable. Urinalysis not suggestive of infection. I had ordered a CT scan of the abdomen and pelvis, however the conveyor technician had initially been concerned about the appearance of his lung and added a CT scan of the chest to this as well. CT scan of the chest reveals mild streaky atelectasis at the posterior left base and is otherwise unremarkable. CT scan of the abdomen and pelvis reveals a partial small bowel obstruction within the mid ileum. Findings reviewed with the patient. Order placed for an NG tube to be hooked up to low wall intermittent suction. Patient kept n.p.o. and started on maintenance IV fluids. Patient admitted to medicine for a partial small bowel obstruction with consult placed to general surgery. Case discussed with ED attending Dr. Lozada. Undiagnosed new problem with uncertain prognosis? @ -None Drug Therapy requiring intensive monitoring for toxicity (Heparin, Nitro, Insulin, Cardizem)? @ -None Were any procedures done? @ -None Diagnosis/symptom? @ -Partial small bowel obstruction Acute, or Chronic, or Acute on Chronic? @ -Acute Uncomplicated (without systemic symptoms) or Complicated (systemic symptoms)? @ -Complicated Side effects of treatment? @ -None Exacerbation, Progression, or Severe Exacerbation] @ -Not applicable Poses a threat to life or bodily function? @ -Yes, can lead to bowel perforation, which can be life-threatening - Lab Data Result diagrams: 04/23/25 20:21 04/23/25 20:21 Lab Results 04/23/25 04/23/25 04/23/25 Range/Units 20:21 20:21 20:21 WBC 10.03 H (4.50-10.00) 10*3/uL RBC 5.44 (4.40-5.60) 10*6/uL Hgb 16.6 (13.0-17.0) g/dL Hct 48.8 (39.6-50.0) % MCV 89.7 (80.0-97.0) fL MCH 30.5 (27.0-32.0) pg MCHC 34.0 (32.0-37.0) g/dL Plt Count 299 (140-440) 10*3/uL MPV 8.9 L (9.5-12.2) fL Immature Gran % (Auto) 0.3 % Neutrophils % 82.9 % Lymphocytes % 8.7 % Monocytes % 6.6 % Eosinophils % 1.0 % Basophils % 0.5 % Immature Gran # 0.03 (0.00-0.04) 10*3/uL Neutrophils # 8.32 H (1.80-7.70) 10*3/uL Lymphocytes # 0.87 L (0.90-5.00) 10*3/uL Monocytes # 0.66 (0.20-1.00) 10*3/uL Eosinophils # 0.10 (0.04-0.35) 10*3/uL Basophils # 0.05 (0.00-0.10) 10*3/uL Sodium 141 (137-145) mmol/L Potassium 4.8 (3.5-5.1) mmol/L Chloride 102 (98-107) mmol/L Carbon Dioxide 29 (22-30) mmol/L Anion Gap 10 mmol/L BUN 25 H (9-20) mg/dL Creatinine 1.13 (0.66-1.25) mg/dL Est GFR (CKD-EPI)AfAm 72 (>60 ml/min/1.73 sqM) Est GFR (CKD-EPI)NonAf 63 (>60 ml/min/1.73 sqM) Glucose 117 H (74-99) mg/dL Plasma Lactic Acid Marlon 1.0 (0.7-2.0) mmol/L Calcium 10.9 H (8.4-10.2) mg/dL Total Bilirubin 1.1 (0.2-1.3) mg/dL AST 34 (17-59) U/L ALT 28 (4-49) U/L Alkaline Phosphatase 82 (38-126) U/L Total Protein 8.2 (6.3-8.2) g/dL Albumin 4.6 (3.5-5.0) g/dL Lipase 43 (23-300) U/L Urine Color Urine Appearance (Clear) Urine pH (5.0-8.0) Ur Specific [place] (1.001-1.035) Urine Protein (Negative) Urine Glucose (UA) (Negative) Urine Ketones (Negative) Urine Blood (Negative) Urine Nitrite (Negative) Urine Bilirubin (Negative) Urine Urobilinogen (<2.0) mg/dL Ur Leukocyte Esterase (Negative) Urine RBC (0-5) /hpf Urine WBC (0-5) /hpf Urine Mucus (None) /hpf // Range/Units 20:22 WBC (4.50-10.00) 10*3/uL RBC (4.40-5.60) 10*6/uL Hgb (13.0-17.0) g/dL Hct (39.6-50.0) % MCV (80.0-97.0) fL MCH (27.0-32.0) pg MCHC (32.0-37.0) g/dL Plt Count (140-440) 10*3/uL MPV (9.5-12.2) fL Immature Gran % (Auto) % Neutrophils % % Lymphocytes % % Monocytes % % Eosinophils % % Basophils % % Immature Gran # (0.00-0.04) 10*3/uL Neutrophils # (1.80-7.70) 10*3/uL Lymphocytes # (0.90-5.00) 10*3/uL Monocytes # (0.20-1.00) 10*3/uL Eosinophils # (0.04-0.35) 10*3/uL Basophils # (0.00-0.10) 10*3/uL Sodium (137-145) mmol/L Potassium (3.5-5.1) mmol/L Chloride (98-107) mmol/L Carbon Dioxide (22-30) mmol/L Anion Gap mmol/L BUN (9-20) mg/dL Creatinine (0.66-1.25) mg/dL Est GFR (CKD-EPI)AfAm (>60 ml/min/1.73 sqM) Est GFR (CKD-EPI)NonAf (>60 ml/min/1.73 sqM) Glucose (74-99) mg/dL Plasma Lactic Acid Marlon (0.7-2.0) mmol/L Calcium (8.4-10.2) mg/dL Total Bilirubin (0.2-1.3) mg/dL AST (17-59) U/L ALT (4-49) U/L Alkaline Phosphatase (38-126) U/L Total Protein (6.3-8.2) g/dL Albumin (3.5-5.0) g/dL Lipase (23-300) U/L Urine Color Yellow Urine Appearance Clear (Clear) Urine pH 6.5 (5.0-8.0) Ur Specific [place] 1.026 (1.001-1.035) Urine Protein Trace H (Negative) Urine Glucose (UA) Negative (Negative) Urine Ketones 2+ H (Negative) Urine Blood Small H (Negative) Urine Nitrite Negative (Negative) Urine Bilirubin Negative (Negative) Urine Urobilinogen 2.0 (<2.0) mg/dL Ur Leukocyte Esterase Negative (Negative) Urine RBC 14 H (0-5) /hpf Urine WBC 1 (0-5) /hpf Urine Mucus Occasional H (None) /hpf - Radiology Data Radiology results: report reviewed, image reviewed Disposition Clinical Impression: Partial small bowel obstruction Disposition: ADMITTED IP TO THIS HOSP
[2025-04-23 20:30] LABS: Basophils # (A) 0.05 10*3/uL (0.00-0.10); Basophils % (A) 0.5 %; HCT 48.8 % (39.6-50.0); HGB 16.6 g/dL (13.0-17.0); Lymphocytes # (A) 0.87 10*3/uL (0.90-5.00); Lymphocytes % (A) 8.7 %; MCH 30.5 pg (27.0-32.0); MCV 89.7 fL (80.0-97.0); Mean Platelet Volume 8.9 fL (9.5-12.2); Monocytes # (A) 0.66 10*3/uL (0.20-1.00); Monocytes % (A) 6.6 %; Neutrophils # (A) 8.32 10*3/uL (1.80-7.70); Neutrophils % (A) 82.9 %; Platelet Count 299 10*3/uL (140-440); RBC 5.44 10*6/uL (4.40-5.60); RDW 13.4 % (11.5-14.5); WBC 10.03 10*3/uL (4.50-10.00)
[2025-04-23 20:37] LABS: Appearance,Urine Clear (Clear); Bilirubin,Urine Negative (Negative); Blood,Urine Small (Negative); Color,Urine Yellow; Glucose,Urine (UA) Negative (Negative); Ketones,Urine 2+ (Negative); Leukocyte Esterase,Urine Negative (Negative); Mucus,Urine Occasional /hpf; Nitrite,Urine Negative (Negative); PH, Urine 6.5 (5.0-8.0); Protein,Urine Trace (Negative); RBC,Urine 14 /hpf (0-5); Specific Gravity,Urine 1.026 (1.001-1.035); WBC,Urine 1 /hpf (0-5)
[2025-04-23 20:40] LABS: ALT 28 U/L (4-49); AST 34 U/L (17-59); African American GFR (CKD) 72 (>60 ml/min/1.73 sqM); Albumin 4.6 g/dL (3.5-5.0); Alkaline Phosphatase 82 U/L (38-126); Anion Gap 10 mmol/L; Blood Urea Nitrogen 25 mg/dL (9-20); Calcium 10.9 mg/dL (8.4-10.2); Carbon Dioxide 29 mmol/L (22-30); Chloride 102 mmol/L (98-107); Glucose 117 mg/dL (74-99); Lipase 43 U/L (23-300); Non-African American GFR(CKD) 63 (>60 ml/min/1.73 sqM); Potassium 4.8 mmol/L (3.5-5.1); Sodium 141 mmol/L (137-145); Total Bilirubin 1.1 mg/dL (0.2-1.3); Total Protein 8.2 g/dL (6.3-8.2)
--- NOTE | 2025-04-23 22:04 | CT ---
EXAMINATION TYPE: CT chest wo con DATE OF EXAM: 04/23/2025 9:52 PM COMPARISON: None. CLINICAL INDICATION: Male, 75 years old with history of left lung opacity, MID ABDOMINAL PAIN SINCE T HIS MORNING, NAUSEA, HX OF PARTIAL DIAPHRAGM PARALYSIS TECHNIQUE: Axial images were obtained at 5 mm thick sections. Reconstructed images are reviewed on [facility] computer in the coronal plane. Contrast used: mL of , (none if empty) Oral contrast used: (none if empty) CT DLP: 762.9 mGycm, Automated exposure control for dose reduction was used. FINDINGS: Portion of the thyroid visualized is normal. Some streaky atelectasis at the left base. Lung benedict otherwise appear clear. No enlarged mediastinal or hilar adenopathy is evident. The ascending aorta diameter at the level o f the main pulmonary artery is 3.5 cm. The main pulmonary artery diameter at the bifurcation is 2.8 cm. No significant coronary artery calcifications. IMPRESSION: 1. Mild streaky atelectasis posterior left base [facility], , 04/23/2025 10:02 PM
--- NOTE | 2025-04-23 22:13 | CT ---
EXAMINATION TYPE: CT abdomen pelvis w con DATE OF EXAM: 04/23/2025 9:52 PM COMPARISON: None. CLINICAL INDICATION: Male, 75 years old with history of Left sided abdominal pain, MID ABDOMINAL PAIN SINCE THIS MORNING, NAUSEA, HX OF PARTIAL DIAPHRAGM PARALYSIS TECHNIQUE: Axial images were obtained from above the diaphragm to the pubic rami in the axial plane a t 5 mm thick sections. Reconstructed images are reviewed on the computer in the coronal plane. CONTRAST: 100ml mL of Isovue 300. Study performed without Oral Contrast DLP: 2254.5 mGycm, Automated exposure control for dose reduction was used. FINDINGS: Limited CT sections are obtained the lung bases. There is elevation left diaphragm.. CT ABDOMEN: Liver: Normal Spleen: A splenule adjacent to the lateral tip of the spleen Pancreas: Normal Adrenal glands: The adrenal glands are normal. Gallbladder: Surgically absent Kidneys: No masses are evident. No hydronephrosis is present. No cysts are present. Delayed images were obtained through the kidneys, which remain unremarkable. Aorta: Vascular calcification is within the aorta. Inferior vena cava: Normal. CT PELVIS: There are dilated fluid-filled small bowel loops suggestive for small bowel obstruction. This may ret urn to more normal caliber without fluid in the mid pelvis, example image series 302 image 51. Some d istal terminal ileum however does appear to have fluid is may be a focal narrowing. Appendix: Not identified. Urinary bladder: Normal. Genitourinary structures: Prostate is slightly prominent Osseous structures: No suspicious lytic or sclerotic lesions. Localizes L5 is present. IMPRESSION: 1. Partial small bowel obstruction within the mid ileum. Ileus is less likely. [facility], , 04/23/2025 10:10 PM
[2025-04-23] MEDS ORDERED: NALOXONE 0.4 MG/ML 1 ML VIAL IV PRN (22:34)
[2025-04-23] MEDS ORDERED: ONDANSETRON 4 MG/2 ML VIAL IVP PRN (22:34)
[2025-04-23] MEDS ORDERED: HYDROcodone/APAP 5-325MG 1 EACH TAB PO PRN (22:34)
[2025-04-23] MEDS ORDERED: ACETAMINOPHEN TAB 325 MG TAB PO PRN (22:34)
[2025-04-23] MEDS: SODIUM CHLORIDE 0.9% 1,000 ML IV ONE (22:44)
[2025-04-23] MEDS: ONDANSETRON 4 MG/2 ML VIAL IVP STA (22:44)
[2025-04-23] MEDS: HYDROmorphone 1 MG/ML 1 ML SYRINGE IVP STA (22:44)
[2025-04-23] MEDS: METOPROLOL TARTRATE 25 MG TAB PO STA (22:45)
[2025-04-24] MEDS: SODIUM CHLORIDE 0.9% 1,000 ML IV SCH (00:26)
[2025-04-24] MEDS: clonazePAM 0.5 MG TAB PO STA (03:43)
[2025-04-24] MEDS: TAMSULOSIN 0.4 MG CAP.ER.24H PO STA (03:43)
[2025-04-24] MEDS: LORazepam 1 MG/0.5 ML VIAL IV STA (03:44)
[2025-04-24] MEDS: DOXEPIN 25 MG CAP PO SCH (03:45)
--- NOTE | 2025-04-24 04:09 | XR ---
EXAM: XR Chest, 1 View CLINICAL HISTORY: Confirm NG tube placement TECHNIQUE: Frontal view of the chest. COMPARISON: Chest radiograph 12/12/2024 FINDINGS: Lungs: Bilateral airspace opacities are present. Pleural space: Small bilateral pleural effusions. No pneumothorax. Heart: Cardiomegaly. Mediastinum: Unremarkable. Normal mediastinal contour. Bones/joints: There are degenerative changes of the spine. No acute fracture. Tubes, lines and devices: A nasogastric tube courses below the diaphragm. The tip overlies the stomach, however the side-port overlies the gastroesophageal junction. IMPRESSION: 1. A nasogastric tube courses below the diaphragm. The tip overlies the stomach, however the side-port overlies the gastroesophageal junction. Recommend advancement for optimal placement. 2. Bilateral airspace opacities may represent pulmonary edema and/or atypical infection. 3. Cardiomegaly. 4. Small bilateral pleural effusions.
[2025-04-24] MEDS: MORPHINE SULFATE 4 MG/ML SYRINGE IV PRN (04:27)
[2025-04-24] MEDS: PANTOPRAZOLE 40 MG/10 ML VIAL IV SCH (09:06)
--- NOTE | 2025-04-24 11:25 | P.HPIM ---
History of Present Illness H&P Date: 04/24/25 Samy Lowry is a 75-year-old male patient of Dr. Hughes who presented with complaints of nausea vomiting and abdominal pain. Additional medical history includes A-fib, hyperlipidemia and hypertension he has a past medical history of hernia but this pain is reported as worse Prompting him to come to the ER. Chest CT completed showing mild streaky atelectasis posterior left base. Abdomen and pelvis CT completed showing partial small bowel obstruction with benign or mid ileal ileus is less likely. white blood cell 10.03, hemoglobin 16.6 hematuria, creatinine 1.13 bun 25. Current vital signs temp 97.8, rate 75, respiratory rate 18, blood pressure 148/77 with a pulse ox of 95% on room air. NG tube placed in ER. Surgical services consulted. Patient reports improvement with abdominal pain. Patient denies nausea vomiting or diarrhea. Patient denies chest pain or shortness of breath. Patient denies urinary burning or frequency. Review of Systems Please refer to HPI Past Medical History Past Medical History: Atrial Fibrillation, Hyperlipidemia, Hypertension Additional Past Medical History / Comment(s): diverticulitis, tinnitis History of Any Multi-Drug Resistant Organisms: None Reported Past Surgical History: Appendectomy, Cholecystectomy, Hernia Repair Additional Past Surgical History / Comment(s): EGD/colonoscopy, deviated septum repair, hemorrhoidectomy, vanna inguinal hernia Past Anesthesia/Blood Transfusion Reactions: No Reported Reaction Additional Past Anesthesia/Blood Transfusion Reaction / Comment(s): no blood transfusion Past Psychological History: ADD/ADHD, Anxiety, Depression, Panic Disorder, PTSD Smoking Status: Former smoker Past Alcohol Use History: Occasional Additional Past Alcohol Use History / Comment(s): quit smoking 1979 Past Drug Use History: None Reported Additional Drug Use History / Comment(s): . - Past Family History Father Additional Family Medical History / Comment(s): CLL Medications and Allergies Home Medications Medication Instructions Recorded Confirmed Type Dextroamphetamine/Amphetamine 10 mg PO DAILY 07/13/23 04/15/25 History [Adderall Xr 10 mg Capsule] Fluticasone Nasal [place] [Flonase 1 spr EA NOSTRIL BID 07/13/23 04/15/25 History Nasal [place]] Apixaban [Eliquis] 5 mg PO BID 30 Days #60 tab 12/13/24 04/15/25 Rx Doxepin HCl [SINEquan] 100 mg PO HS 12/13/24 04/15/25 History Metoprolol Tartrate 25 mg PO BID #60 tab 01/09/25 04/15/25 Rx buPROPion HCL [Wellbutrin XL] 150 mg PO DAILY 04/09/25 04/15/25 History clonazePAM [KlonoPIN] 0.5 mg PO BID PRN 04/09/25 04/15/25 History lamoTRIgine [LaMICtal] 50 mg PO BID 04/09/25 04/15/25 History Pravastatin Sodium [Pravachol] 20 mg PO HS 04/24/25 History Tamsulosin HCl [Flomax] 0.4 mg PO HS 04/24/25 History Testosterone [Androgel 1.62%] 3 pump TRANSDERM DAILY 04/24/25 History Allergies Allergy/AdvReac Type Severity Reaction Status Date / Time erythromycin base Allergy Rash/Hives Verified 04/23/25 19:38 Physical Exam Vitals: Vital Signs Temp Pulse Pulse Resp BP BP Pulse Ox 04/24/25 07:06 97.8 F 75 18 148/77 94 L 04/24/25 05:28 98.0 F 81 17 159/85 95 04/24/25 04:42 98.0 F 76 18 146/87 94 L 04/24/25 03:00 97.9 F 74 18 156/95 95 04/24/25 01:00 80 18 149/92 99 04/24/25 00:27 76 17 157/90 97 04/23/25 19:35 97.6 F 72 18 136/88 94 L Intake and Output 04/23/25 04/24/25 04/24/25 22:59 06:59 14:59 Other: # Voids 1 Weight 122.47 kg 122.47 kg Head normocephalic Neck supple Lungs clear to auscultation bilaterally no wheezing or crackles Heart regular rate and rhythm S1-S2, no rub or gallop Abdomen is rounded soft hypoactive Extremities no edema Neuro alert and orientated to 3 Results CBC & Chem 7: 04/23/25 20:21 04/23/25 20:21 Labs: Abnormal Lab Results - Last 24 Hours (Table) 04/23/25 04/23/25 04/23/25 Range/Units 20:21 20:21 20:22 WBC 10.03 H (4.50-10.00) 10*3/uL MPV 8.9 L (9.5-12.2) fL Neutrophils # 8.32 H (1.80-7.70) 10*3/uL Lymphocytes # 0.87 L (0.90-5.00) 10*3/uL BUN 25 H (9-20) mg/dL Glucose 117 H (74-99) mg/dL Calcium 10.9 H (8.4-10.2) mg/dL Urine Protein Trace H (Negative) Urine Ketones 2+ H (Negative) Urine Blood Small H (Negative) Urine RBC 14 H (0-5) /hpf Urine Mucus Occasional H (None) /hpf Thrombosis Risk Factor Assmnt - Choose All That Apply Each Factor Represents 1 point: Obesity (BMI >25) Other Risk Factors: No Other congenital or acquired thrombophilia - If yes, enter type in comment: No Thrombosis Risk Factor Assessment Total Risk Factor Score: 1 Thrombosis Risk Factor Assessment Level: Low Risk Assessment and Plan Assessment: 1. Abdominal pain secondary to partial small bowel obstruction NG tube in place 2. History of atrial fibrillation maintained on Eliquis currently on hold 3. History of hyperlipidemia 4. History of essential hypertension 5. History of anxiety and depression 6. History of PTSD DVT prophylaxis SCDs Eliquis to be held GI prophylax Protonix NG tube in place Surgical services consulted repeat labs ordered in a.m. Time with Patient: Greater than 30 (Greater than 60% of the total time spent in counseling and coordination of care)
--- NOTE | 2025-04-24 12:36 | P.GSCN ---
History of Present Illness Consult date: 04/24/25 History of present illness: CHIEF COMPLAINT: Abdominal pain HISTORY OF PRESENT ILLNESS: This is a 75-year-old male who presented the hospital with complaints of diffuse abdominal pain and distention that started yesterday. Patient reports he had a normal bowel movement yesterday morning. However, he has been dealing with constipation lately. He also reports nausea no vomiting. He had a CT scan abdomen pelvis that had reported a partial small bowel obstruction in the mid ileum. Patient had NG tube placed. Patient reports improvement in his pain and nausea after NG tube placement. Patient denies any prior history of bowel obstruction. His past surgical history does include appendectomy, cholecystectomy and bilateral inguinal hernia repair. Patient does have a history of atrial fibrillation and last dose of Eliquis was Monday. Patient reports no flatus or bowel movement since NG tube placed. Since NG tube placement 600 mL light brownish output. Last colonoscopy was April 15, 2025 and had reported colon polyps. PAST MEDICAL HISTORY: See below and partially paralyzed diaphragm PAST SURGICAL HISTORY: See below MEDICATIONS: See below ALLERGIES: See below SOCIAL HISTORY: No illicit drug use. REVIEW OF SYSTEMS: CONSTITUTIONAL: Denies fever or chills. HEENT: Denies blurred vision, vision changes, or eye pain. Denies hemoptysis CARDIOVASCULAR: Denies chest pain or pressure. RESPIRATORY: No shortness of breath. GASTROINTESTINAL: See HPI for pertinent findings HEMATOLOGIC: Denies bleeding disorders. GENITOURINARY: Denies any blood in urine or increased urinary frequency. SKIN: Denies pruitis. Denies rash. PHYSICAL EXAM: VITAL SIGNS: Reviewed GENERAL: Well-developed in no acute distress. HEENT: No sclera icterus. Extraocular movements grossly intact. Moist buccal mucosa. Head is atraumatic, normocephalic. No nasal drainage. ABDOMEN: Soft. Mildly distended. Nontender. No rebound or guarding. NEUROLOGIC: Alert and oriented. Cranial nerves II through XII grossly intact. LABORATORY DATA: WBC 10.03 Hgb 16.6 platelets 299 Sodium 141 potassium 4.8 creatinine 1.13 IMAGING: CT scan abdomen pelvis reports partial small bowel obstruction within the mid ileum, ileus is less likely ASSESSMENT: 1. Partial small bowel obstruction 2. Prior history of abdominal surgeries PLAN: - Continue NG tube for decompression - Keep patient n.p.o. - Continue IV fluids - Encourage patient to increase activity level - Continue to monitor Physician Senior Net Software Developer note has been reviewed by physician. Signing provider agrees with the documented findings, assessment, and plan of care. Past Medical History Past Medical History: Atrial Fibrillation, Hyperlipidemia, Hypertension Additional Past Medical History / Comment(s): diverticulitis, tinnitis History of Any Multi-Drug Resistant Organisms: None Reported Past Surgical History: Appendectomy, Cholecystectomy, Hernia Repair Additional Past Surgical History / Comment(s): EGD/colonoscopy, deviated septum repair, hemorrhoidectomy, vanna inguinal hernia Past Anesthesia/Blood Transfusion Reactions: No Reported Reaction Additional Past Anesthesia/Blood Transfusion Reaction / Comm: no blood transfusion Past Psychological History: ADD/ADHD, Anxiety, Depression, Panic Disorder, PTSD Smoking Status: Former smoker Past Alcohol Use History: Occasional Additional Past Alcohol Use History / Comment(s): quit smoking 1980 Past Drug Use History: None Reported Additional Drug Use History / Comment(s): . - Past Family History Father Additional Family Medical History / Comment(s): CLL Medications and Allergies Home Medications Medication Instructions Recorded Confirmed Type Dextroamphetamine/Amphetamine 10 mg PO DAILY 07/13/23 04/24/25 History [Adderall Xr 10 mg Capsule] Fluticasone Nasal Tad [Flonase 1 spr EA NOSTRIL BID 07/13/23 04/24/25 History Nasal Tad] Apixaban [Eliquis] 5 mg PO BID 30 Days #60 tab 12/13/24 04/24/25 Rx Doxepin HCl [SINEquan] 100 mg PO HS 12/13/24 04/24/25 History Metoprolol Tartrate 25 mg PO BID #60 tab 01/09/25 04/24/25 Rx buPROPion HCL [Wellbutrin XL] 150 mg PO DAILY 04/09/25 04/24/25 History clonazePAM [KlonoPIN] 0.5 mg PO BID PRN 04/09/25 04/24/25 History lamoTRIgine [LaMICtal] 50 mg PO BID 04/09/25 04/24/25 History Pravastatin Sodium [Pravachol] 20 mg PO HS 04/24/25 04/24/25 History Tamsulosin HCl [Flomax] 0.4 mg PO HS 04/24/25 04/24/25 History Testosterone [Androgel 1.62%] 3 pump TRANSDERM DAILY 04/24/25 04/24/25 History Allergies Allergy/AdvReac Type Severity Reaction Status Date / Time erythromycin base Allergy Rash/Hives Verified 04/24/25 12:07 Surgical - Exam Vital Signs Temp Pulse Resp BP Pulse Ox 97.6 F 72 18 136/88 94 L 04/23/25 19:35 04/23/25 19:35 04/23/25 19:35 04/23/25 19:35 04/23/25 19:35 Results - Labs 04/23/25 20:21 04/23/25 20:21 Abnormal Lab Results - Last 24 Hours (Table) 04/23/25 04/23/25 04/23/25 Range/Units 20:21 20:21 20:22 WBC 10.03 H (4.50-10.00) 10*3/uL MPV 8.9 L (9.5-12.2) fL Neutrophils # 8.32 H (1.80-7.70) 10*3/uL Lymphocytes # 0.87 L (0.90-5.00) 10*3/uL BUN 25 H (9-20) mg/dL Glucose 117 H (74-99) mg/dL Calcium 10.9 H (8.4-10.2) mg/dL Urine Protein Trace H (Negative) Urine Ketones 2+ H (Negative) Urine Blood Small H (Negative) Urine RBC 14 H (0-5) /hpf Urine Mucus Occasional H (None) /hpf Diabetes panel 04/23/25 Range/Units 20:21 Sodium 141 (137-145) mmol/L Potassium 4.8 (3.5-5.1) mmol/L Chloride 102 (98-107) mmol/L Carbon Dioxide 29 (22-30) mmol/L BUN 25 H (9-20) mg/dL Creatinine 1.13 (0.66-1.25) mg/dL Glucose 117 H (74-99) mg/dL Calcium 10.9 H (8.4-10.2) mg/dL AST 34 (17-59) U/L ALT 28 (4-49) U/L Alkaline Phosphatase 82 (38-126) U/L Total Protein 8.2 (6.3-8.2) g/dL Albumin 4.6 (3.5-5.0) g/dL Calcium panel 04/23/25 Range/Units 20:21 Calcium 10.9 H (8.4-10.2) mg/dL Albumin 4.6 (3.5-5.0) g/dL Pituitary panel 04/23/25 Range/Units 20:21 Sodium 141 (137-145) mmol/L Potassium 4.8 (3.5-5.1) mmol/L Chloride 102 (98-107) mmol/L Carbon Dioxide 29 (22-30) mmol/L BUN 25 H (9-20) mg/dL Creatinine 1.13 (0.66-1.25) mg/dL Glucose 117 H (74-99) mg/dL Calcium 10.9 H (8.4-10.2) mg/dL Adrenal panel 04/23/25 Range/Units 20:21 Sodium 141 (137-145) mmol/L Potassium 4.8 (3.5-5.1) mmol/L Chloride 102 (98-107) mmol/L Carbon Dioxide 29 (22-30) mmol/L BUN 25 H (9-20) mg/dL Creatinine 1.13 (0.66-1.25) mg/dL Glucose 117 H (74-99) mg/dL Calcium 10.9 H (8.4-10.2) mg/dL Total Bilirubin 1.1 (0.2-1.3) mg/dL AST 34 (17-59) U/L ALT 28 (4-49) U/L Alkaline Phosphatase 82 (38-126) U/L Total Protein 8.2 (6.3-8.2) g/dL Albumin 4.6 (3.5-5.0) g/dL
--- NOTE | 2025-04-24 13:55 | XR ---
EXAMINATION TYPE: XR chest 1V DATE OF EXAM: 04/24/2025 CLINICAL INDICATION: Male, 75 years old with history of confirm NG tube placement, progress study. TECHNIQUE: Single AP portable upright view of the chest is obtained. COMPARISON: Chest x-ray from earlier today FINDINGS: Nasogastric tube redemonstrated. Tip is difficult to distinctly visualize. Elevated left hemidiaphragm redemonstrated. Persistent bibasilar opacities and cardiomegaly. Osseous structures remain demineralized. IMPRESSION: Unable to distinctly visualize tip of nasogastric tube. Advise KUB x-ray to further evalu ate. [facility], , 04/24/2025 1:53 PM
[2025-04-25 08:21] LABS: Basophils # (A) 0.05 X 10*3/uL (0.00-0.10); Basophils % (A) 0.6 %; Eosinophils # (A) 0.25 X 10*3/uL (0.04-0.35); Eosinophils % (A) 2.9 %; HCT 45.6 % (39.6-50.0); HGB 14.8 g/dL (13.0-17.0); Lymphocytes # (A) 1.39 X 10*3/uL (0.90-5.00); MCH 30.3 pg (27.0-32.0); MCHC 32.5 g/dL (32.0-37.0); MCV 93.3 FL (80.0-97.0); Mean Platelet Volume 9.2 FL (9.5-12.2); Monocytes # (A) 0.99 X 10*3/uL (0.20-1.00); Monocytes % (A) 11.4 %; NRBC Per 100 WBC 0 X 10*3/uL (0.00-0.01); Neutrophils # (A) 5.99 X 10*3/uL (1.80-7.70); Neutrophils % (A) 68.8 %; Platelet Count 249 X 10*3/uL (140-440); RBC 4.89 X 10*6/uL (4.40-5.60); RDW 13.7 % (11.5-14.5)
--- NOTE | 2025-04-25 09:38 | XR ---
EXAMINATION TYPE: XR abdomen 2V DATE OF EXAM: 04/25/2025 CLINICAL INDICATION: Male, 75 years old with history of Follow-up SBO, pain TECHNIQUE: Supine and upright views of the abdomen are obtained. COMPARISON: CT abdomen and pelvis 2 days ago. FINDINGS: New nasogastric tube extends just below diaphragm. Elevated left hemidiaphragm redemonstrat ed . Gas seen in nondistended stomach. Prominent gas-filled small bowel loops in the left abdomen rem ain present. Cholecystectomy clips are redemonstrated. No free air is seen. Osseous structures are in tact. IMPRESSION: Findings suspicious for continued partial mid small bowel obstruction. [facility], , 04/25/2025 9:36 AM
[2025-04-25 10:25] LABS: ALT 21 U/L (10-49); AST 25 U/L (14-35); Albumin 3.9 g/dL (3.8-4.9); Albumin/Globulin Ratio 1.44 Ratio (1.60-3.17); Alkaline Phosphatase 61 U/L (41-126); Blood Urea Nitrogen 17.6 mg/dL (9.0-27.0); Calcium 9.3 mg/dL (8.7-10.3); Carbon Dioxide 25.5 mmol/L (21.6-31.8); Chloride 104 mmol/L (96-109); Globulin 2.7 g/dL (1.6-3.3); Glucose 86 mg/dL (70-110); Potassium 4.6 mmol/L (3.5-5.5); Sodium 141 mmol/L (135-145); Total Bilirubin 0.9 mg/dL (0.3-1.2); Total Protein 6.6 g/dL (6.2-8.2)
--- NOTE | 2025-04-25 10:29 | P.PN ---
Subjective Progress Note Date: 04/25/25 Samy Lowry is a 75-year-old male patient of Dr. Hughes who presented with complaints of nausea vomiting and abdominal pain. Additional medical history includes A-fib, hyperlipidemia and hypertension he has a past medical history of hernia but this pain is reported as worse Prompting him to come to the ER. Chest CT completed showing mild streaky atelectasis posterior left base. Abdomen and pelvis CT completed showing partial small bowel obstruction with benign or mid ileal ileus is less likely. white blood cell 10.03, hemoglobin 16.6 hematuria, creatinine 1.13 bun 25. Current vital signs temp 97.8, rate 75, respiratory rate 18, blood pressure 148/77 with a pulse ox of 95% on room air. NG tube placed in ER. Surgical services consulted. Patient reports improvement with abdominal pain. Patient denies nausea vomiting or diarrhea. Patient denies chest pain or shortness of breath. Patient denies urinary burning or frequency. On 04/25/2025 patient is alert and oriented x 3. NG tube in place but clamped repeat abdominal x-ray ordered for a.m. per surgical services awaiting further r ecommendations. Patient denies chest pain or shortness of breath. Patient reports improvement with abdominal pain and discomfort. Patient denies any urinary burning or frequency. Current vital signs temp 97.7, heart 94, respiratory rate 18, blood pressure 126/82 with pulse ox of 92% on room air Objective - Vital Signs Vital signs: Vital Signs Temp 97.7 F 04/25/25 07:03 Pulse 94 04/25/25 07:03 Resp 18 04/25/25 07:03 BP 126/82 04/25/25 07:03 Pulse Ox 92 L 04/25/25 07:03 FiO2 Intake & Output 04/24/25 04/25/25 04/25/25 18:59 06:59 18:59 Output Total 800 Balance -800 Output: Gastric Drainage 800 Other: Voiding Method Toilet # Voids 3 2 # Bowel Movements 1 - Exam Head normocephalic Neck supple Lungs clear to auscultation bilaterally no wheezing or crackles Heart regular rate and rhythm S1-S2, no rub or gallop Abdomen is rounded soft hypoactive Extremities no edema Neuro alert and orientated to 3 - Labs CBC & Chem 7: 04/25/25 05:53 04/25/25 05:53 Labs: Abnormal Lab Results - Last 24 Hours (Table) 04/25/25 04/25/25 Range/Units 05:53 05:53 MPV 9.2 L (9.5-12.2) FL Albumin/Globulin Ratio 1.44 L (1.60-3.17) Ratio Assessment and Plan Assessment: 1. Abdominal pain secondary to partial small bowel obstruction NG tube in place 2. History of atrial fibrillation maintained on Eliquis currently on hold 3. History of hyperlipidemia 4. History of essential hypertension 5. History of anxiety and depression 6. History of PTSD DVT prophylaxis SCDs Eliquis to be held GI prophylax Protonix NG tube in place Surgical services consulted repeat labs ordered in a.m.
--- NOTE | 2025-04-25 13:42 | P.PN ---
Subjective Progress Note Date: 04/25/25 SURGICAL PROGRESS NOTE CHIEF COMPLAINT: Partial SBO HISTORY OF PRESENT ILLNESS: Patient reports overall starting to feel better. He reports decreased pain in the abdomen. He is having flatus. Denies any nausea. NG tube with 400 mL output in canister this morning. 800 mL output reported through the night. Abdominal x-ray completed this morning reported findings suspicious for continued partial small bowel obstruction. PHYSICAL EXAM: VITAL SIGNS: Reviewed. GENERAL: Well-developed in no acute distress. HEENT: No sclera icterus. Extraocular movements grossly intact. Moist buccal mucosa. Head is atraumatic, normocephalic. ABDOMEN: Soft. Distended. Mild tenderness palpation of mid abdomen. No rebound or guarding noted NEUROLOGIC: Alert and oriented. Cranial nerves II through XII grossly intact. ASSESSMENT: 1. Partial small bowel obstruction 2. Prior history of abdominal surgeries PLAN: - Continue NG tube for decompression - Keep patient n.p.o. - Encourage patient to ambulate in the hallway - Continue IV fluids - Continue supportive care Physician Filling Operator note has been reviewed by physician. Signing provider agrees with the documented findings, assessment, and plan of care. I have personally seen and examined the patient, reviewed the FILL TECHNICIAN /PAs history, exam and MDM and agree with the assessment and plan as written. Based on total visit time, I have performed more than 50% of the visit. As above: Patient passing flatus. Pain remains minimal. Repeat abdominal x- rays show persistent small bowel dilation. Continue gastric decompression. Possible small bowel follow-through on Monday if bowel obstruction thought to persist. Objective - Vital Signs Vital signs: Vital Signs Temp 97.7 F 04/25/25 07:03 Pulse 94 04/25/25 07:03 Resp 18 04/25/25 07:03 BP 126/82 04/25/25 07:03 Pulse Ox 92 L 04/25/25 07:03 FiO2 Intake & Output 04/24/25 04/25/25 04/25/25 18:59 06:59 18:59 Output Total 800 Balance -800 Output: Gastric Drainage 800 Other: Voiding Method Toilet # Voids 3 2 # Bowel Movements 1 - Labs CBC & Chem 7: 04/25/25 05:53 04/25/25 05:53 Labs: Abnormal Lab Results - Last 24 Hours (Table) 04/25/25 04/25/25 Range/Units 05:53 05:53 MPV 9.2 L (9.5-12.2) FL Albumin/Globulin Ratio 1.44 L (1.60-3.17) Ratio
[2025-04-25] MEDS: buPROPion XL 150 MG TAB.ER.24H PO SCH (14:57)
[2025-04-25] MEDS: METOPROLOL TARTRATE 25 MG TAB PO STA (15:18)
[2025-04-25] MEDS: clonazePAM 0.5 MG TAB PO PRN (15:18)
[2025-04-25] MEDS: FLUTICASONE NASAL 50MCG/SPRAY 16GM BTL EA NOSTRIL SCH (22:27)
[2025-04-25] MEDS: METOPROLOL TARTRATE 25 MG TAB PO SCH (22:27)
[2025-04-25] MEDS: PRAVASTATIN SODIUM 20 MG TAB PO SCH (22:27)
[2025-04-25] MEDS: TAMSULOSIN 0.4 MG CAP.ER.24H PO SCH (22:27)
[2025-04-25] MEDS: lamoTRIgine 25 MG TAB PO SCH (22:28)
--- NOTE | 2025-04-26 08:39 | P.PN ---
Subjective Progress Note Date: 04/26/25 The patient states he feels better. He is resting comfortably in his chair. He is tolerating clear liquids. He has no nausea or abdominal pain. On exam vital signs appear stable. Abdomen soft. Patient will have his diet advanced as tolerated. His PSBO is resolving. Objective - Vital Signs Vital signs: Vital Signs Temp 99.5 F 04/26/25 07:20 Pulse 75 04/26/25 07:20 Resp 17 04/26/25 07:20 BP 124/78 04/26/25 07:20 Pulse Ox 96 04/26/25 07:20 FiO2 Intake & Output 04/25/25 04/26/25 04/26/25 18:59 06:59 18:59 Intake Total 900 1270 200 Output Total 402 Balance 498 1270 200 Intake: Intake, IV Titration 900 Amount Sodium Chloride 0.9% 1, 900 000 ml @ 75 mls/hr IV . [id number] LANE Rx#:[id number] Oral 1270 200 Output: Gastric Drainage 400 Urine 2 Other: # Voids 5 - Labs CBC & Chem 7: 04/25/25 05:53 04/25/25 05:53 Labs: Abnormal Lab Results - Last 24 Hours (Table) 04/25/25 Range/Units 05:53 Albumin/Globulin Ratio 1.44 L (1.60-3.17) Ratio
[2025-04-26 09:20] LABS: Blood Urea Nitrogen 14.8 mg/dL (9.0-27.0); Glucose 101 mg/dL (70-110)
[2025-04-26 09:21] LABS: ALT 21 U/L (10-49); AST 25 U/L (14-35); Albumin 4.1 g/dL (3.8-4.9); Albumin/Globulin Ratio 1.46 Ratio (1.60-3.17); Alkaline Phosphatase 65 U/L (41-126); Basophils # (A) 0.04 X 10*3/uL (0.00-0.10); Basophils % (A) 0.5 %; Carbon Dioxide 26.3 mmol/L (21.6-31.8); Chloride 102 mmol/L (96-109); Eosinophils # (A) 0.27 X 10*3/uL (0.04-0.35); Eosinophils % (A) 3.5 %; Globulin 2.8 g/dL (1.6-3.3); HGB 14.9 g/dL (13.0-17.0); Lymphocytes # (A) 1.55 X 10*3/uL (0.90-5.00); Lymphocytes % (A) 20.3 %; MCH 30.2 pg (27.0-32.0); MCHC 31.7 g/dL (32.0-37.0); MCV 95.1 FL (80.0-97.0); Mean Platelet Volume 9.5 FL (9.5-12.2); Monocytes # (A) 0.88 X 10*3/uL (0.20-1.00); Monocytes % (A) 11.5 %; NRBC Per 100 WBC 0 X 10*3/uL (0.00-0.01); Neutrophils # (A) 4.87 X 10*3/uL (1.80-7.70); Neutrophils % (A) 63.8 %; Platelet Count 268 X 10*3/uL (140-440); Potassium 4.1 mmol/L (3.5-5.5); RBC 4.94 X 10*6/uL (4.40-5.60); RDW 13.3 % (11.5-14.5); Sodium 139 mmol/L (135-145); Total Protein 6.9 g/dL (6.2-8.2); WBC 7.64 X 10*3/uL (4.50-10.00)
--- NOTE | 2025-04-26 10:47 | P.PN ---
Subjective Progress Note Date: 04/26/25 Samy Lowry is a 75-year-old male patient of Dr. Hughes who presented with complaints of nausea vomiting and abdominal pain. Additional medical history includes A-fib, hyperlipidemia and hypertension he has a past medical history of hernia but this pain is reported as worse Prompting him to come to the ER. Chest CT completed showing mild streaky atelectasis posterior left base. Abdomen and pelvis CT completed showing partial small bowel obstruction with benign or mid ileal ileus is less likely. white blood cell 10.03, hemoglobin 16.6 hematuria, creatinine 1.13 bun 25. Current vital signs temp 97.8, rate 75, respiratory rate 18, blood pressure 148/77 with a pulse ox of 95% on room air. NG tube placed in ER. Surgical services consulted. Patient reports improvement with abdominal pain. Patient denies nausea vomiting or diarrhea. Patient denies chest pain or shortness of breath. Patient denies urinary burning or frequency. On 04/25/2025 patient is alert and oriented x 3. NG tube in place but clamped repeat abdominal x-ray ordered for a.m. per surgical services awaiting further r ecommendations. Patient denies chest pain or shortness of breath. Patient reports improvement with abdominal pain and discomfort. Patient denies any urinary burning or frequency. Current vital signs temp 97.7, heart 94, respiratory rate 18, blood pressure 126/82 with pulse ox of 92% on room air 04/26/2025 patient was seen and examined on the medical floor she is alert and oriented x 3 in no apparent distress, pulled his NG tube by accident through the night, this morning he had 2 loose bowel movement, he was started on clear liquid diet which he is tolerating well at this time, otherwise he denies any symptoms, there is no fever or chills no headache or dizziness no chest pain no shortness of breath no cough, no nausea or vomiting no abdominal pain no diarrhea no urinary symptoms. He was evaluated by surgery today, plan is to advance diet gradually, stable discharge to home tomorrow. Objective - Vital Signs Vital signs: Vital Signs Temp 99.5 F 04/26/25 07:20 Pulse 75 04/26/25 07:20 Resp 17 04/26/25 07:20 BP 124/78 04/26/25 07:20 Pulse Ox 96 04/26/25 07:20 FiO2 Intake & Output 04/25/25 04/26/25 04/26/25 18:59 06:59 18:59 Intake Total 900 1270 200 Output Total 402 Balance 498 1270 200 Intake: Intake, IV Titration 900 Amount Sodium Chloride 0.9% 1, 900 000 ml @ 75 mls/hr IV . [id number] LANE Rx#:[id number] Oral 1270 200 Output: Gastric Drainage 400 Urine 2 Other: # Voids 5 - Exam In general patient is alert and oriented x 3 in no distress HEENT head normocephalic and atraumatic Neck is supple no JVD no goiter no lymphadenopathy no carotid bruit Chest examination is clear to auscultation no crackles no wheezing Cardiac exam reveals regular heart sounds S1 and S2 no gallops no murmurs Abdomen is soft nontender no organomegaly with normal bowel sounds Extremity exam reveals no edema no cyanosis or clubbing Neurological examination reveals no gross focal deficits - Labs CBC & Chem 7: 04/26/25 04:40 04/26/25 04:40 Labs: Abnormal Lab Results - Last 24 Hours (Table) 04/26/25 04/26/25 Range/Units 04:40 04:40 MCHC 31.7 L (32.0-37.0) g/dL Albumin/Globulin Ratio 1.46 L (1.60-3.17) Ratio Assessment and Plan Assessment: 1. Abdominal pain secondary to partial small bowel obstruction NG tube in place 2. History of atrial fibrillation maintained on Eliquis currently on hold 3. History of hyperlipidemia 4. History of essential hypertension 5. History of anxiety and depression 6. History of PTSD DVT prophylaxis SCDs Eliquis to be held GI prophylax Protonix NG tube in place Surgical services consulted repeat labs ordered in a.m.
[2025-04-26] MEDS: APIXABAN 5 MG TAB PO SCH (13:07)
[2025-04-27 07:55] LABS: Basophils # (A) 0.03 10*3/uL (0.00-0.10); Basophils % (A) 0.6 %; Eosinophils # (A) 0.29 10*3/uL (0.04-0.35); Eosinophils % (A) 5.7 %; HCT 41.3 % (39.6-50.0); HGB 14.1 g/dL (13.0-17.0); Lymphocytes # (A) 1.41 10*3/uL (0.90-5.00); Lymphocytes % (A) 27.8 %; MCH 31.1 pg (27.0-32.0); MCHC 34.1 g/dL (32.0-37.0); Mean Platelet Volume 9.1 fL (9.5-12.2); Monocytes # (A) 0.67 10*3/uL (0.20-1.00); Monocytes % (A) 13.2 %; Neutrophils # (A) 2.65 10*3/uL (1.80-7.70); Neutrophils % (A) 52.1 %; Platelet Count 250 10*3/uL (140-440); RBC 4.54 10*6/uL (4.40-5.60); RDW 12.9 % (11.5-14.5); WBC 5.08 10*3/uL (4.50-10.00)
[2025-04-27 08:08] VITALS: BP 110/71; PULSE 68; RESP 16; TEMP 98
[2025-04-27 08:14] LABS: ALT 19 U/L (4-49); AST 24 U/L (17-59); African American GFR (CKD) 87 (>60 ml/min/1.73 sqM); Albumin 3.6 g/dL (3.5-5.0); Albumin/Globulin Ratio 1.2; Alkaline Phosphatase 64 U/L (38-126); Anion Gap 8 mmol/L; Blood Urea Nitrogen 14 mg/dL (9-20); Calcium 9.3 mg/dL (8.4-10.2); Carbon Dioxide 26 mmol/L (22-30); Chloride 104 mmol/L (98-107); Glucose 117 mg/dL (74-99); Non-African American GFR(CKD) 76 (>60 ml/min/1.73 sqM); Potassium 3.7 mmol/L (3.5-5.1); Sodium 138 mmol/L (137-145); Total Bilirubin 0.9 mg/dL (0.2-1.3); Total Protein 6.6 g/dL (6.3-8.2)
--- NOTE | 2025-04-27 09:33 | P.DS ---
Providers Date of admission: 04/23/25 22:38 Expected date of discharge: 04/27/25 Attending physician: Alexandr Oseguera Consults: 04/23/25 22:34 Consult Physician Urgent Consulting Provider: Perez Issa Consult Reason/Comments: Partial SBO Do you want consulting provider notified?: Yes Primary care physician: Vilma Hughes Hospital Course: Discharge diagnosis 1. Abdominal pain secondary to partial small bowel obstruction NG tube in place 2. History of atrial fibrillation maintained on Eliquis currently on hold 3. History of hyperlipidemia 4. History of essential hypertension 5. History of anxiety and depression 6. History of PTSD Hospital course Samy Lowry is a 75-year-old male patient of Dr. Hughes who presented with complaints of nausea vomiting and abdominal pain. Additional medical history includes A-fib, hyperlipidemia and hypertension he has a past medical history of hernia but this pain is reported as worse Prompting him to come to the ER. Chest CT completed showing mild streaky atelectasis posterior left base. Abdomen and pelvis CT completed showing partial small bowel obstruction with b enign or mid ileal ileus is less likely. white blood cell 10.03, hemoglobin 16.6 hematuria, creatinine 1.13 bun 25. Current vital signs temp 97.8, rate 75, respiratory rate 18, blood pressure 148/77 with a pulse ox of 95% on room air. NG tube placed in ER. Surgical services consulted. Patient reports improvement with abdominal pain. Patient denies nausea vomiting or diarrhea. Patient denies chest pain or shortness of breath. Patient denies urinary burning or frequency. On 04/25/2025 patient is alert and oriented x 3. NG tube in place but clamped repeat abdominal x-ray ordered for a.m. per surgical services awaiting further recommendations. Patient denies chest pain or shortness of breath. Patient reports improvement with abdominal pain and discomfort. Patient denies any urinary burning or frequency. Current vital signs temp 97.7, heart 94, respiratory rate 18, blood pressure 126/82 with pulse ox of 92% on room air 04/26/2025 patient was seen and examined on the medical floor she is alert and oriented x 3 in no apparent distress, pulled his NG tube by accident through the night, this morning he had 2 loose bowel movement, he was started on clear liquid diet which he is tolerating well at this time, otherwise he denies any symptoms, there is no fever or chills no headache or dizziness no chest pain no shortness of breath no cough, no nausea or vomiting no abdominal pain no diarrhea no urinary symptoms. He was evaluated by surgery today, plan is to advance diet gradually, stable discharge to home tomorrow. On 04/27/2025 patient is alert and oriented x 3. Patient has been tolerating regular diet without nausea or vomiting. Patient also reports bowel movements. Patient denies chest pain or shortness of breath. Patient denies nausea vomiting or diarrhea. Patient denies any urinary burning or frequency. Current vital signs temp 97.8, heart rate 66, respiratory rate 17, blood pressure 129/73 with pulse ox of 94% on room air. Patient to follow-up with PCP for further management Patient Condition at Discharge: Stable Plan - Discharge Summary Discharge Rx Participant: Yes New Discharge Prescriptions: Continue Fluticasone Nasal [place] [Flonase Nasal Goodrich] 1 spr EA NOSTRIL BID lamoTRIgine [LaMICtal] 50 mg PO BID Pravastatin Sodium [Pravachol] 20 mg PO HS Dextroamphetamine/Amphetamine [Adderall Xr 10 mg Capsule] 10 mg PO DAILY Doxepin HCl [SINEquan] 100 mg PO HS Apixaban [Eliquis] 5 mg PO BID 30 Days #60 tab Metoprolol Tartrate 25 mg PO BID #60 tab buPROPion HCL [Wellbutrin XL] 150 mg PO DAILY clonazePAM [KlonoPIN] 0.5 mg PO BID PRN PRN Reason: Anxiety Tamsulosin HCl [Flomax] 0.4 mg PO HS Testosterone [Androgel 1.62%] 3 pump TRANSDERM DAILY Discharge Medication List Dextroamphetamine/Amphetamine [Adderall Xr 10 mg Capsule] 10 mg PO DAILY 07/13/23 [History] Fluticasone Nasal [place] [Flonase Nasal [place]] 1 spr EA NOSTRIL BID 07/13/23 [History] Apixaban [Eliquis] 5 mg PO BID 30 Days #60 tab 12/13/24 [Rx] Doxepin HCl [SINEquan] 100 mg PO HS 12/13/24 [History] Metoprolol Tartrate 25 mg PO BID #60 tab 01/09/25 [Rx] buPROPion HCL [Wellbutrin XL] 150 mg PO DAILY 04/09/25 [History] clonazePAM [KlonoPIN] 0.5 mg PO BID PRN 04/09/25 [History] lamoTRIgine [LaMICtal] 50 mg PO BID 04/09/25 [History] Pravastatin Sodium [Pravachol] 20 mg PO HS 04/24/25 [History] Tamsulosin HCl [Flomax] 0.4 mg PO HS 04/24/25 [History] Testosterone [Androgel 1.62%] 3 pump TRANSDERM DAILY 04/24/25 [History] Follow up Appointment(s)/Referral(s): Vilma Hughes MD [Primary Care Provider] - 1-2 days Activity/Diet/Wound Care/Special Instructions: diet regular activity as tolerate Discharge Disposition: HOME SELF-CARE
--- NOTE | 2025-04-27 10:50 | P.PN ---
Subjective Progress Note Date: 04/27/25 the patient feels well. He has tolerated his diet. He wants to go home. On exam vital signs appear stable. Abdomen is soft. Resolved partial small bowel obstruction. Patient will be discharged home. Objective - Vital Signs Vital signs: Vital Signs Temp 98.0 F 04/27/25 07:05 Pulse 68 04/27/25 07:05 Resp 16 04/27/25 07:05 BP 110/71 04/27/25 07:05 Pulse Ox 94 L 04/27/25 07:05 FiO2 Intake & Output 04/26/25 04/27/25 04/27/25 18:59 06:59 18:59 Intake Total 600 200 Balance 600 200 Intake: Oral 600 200 Other: Voiding Method Toilet # Voids 4 2 # Bowel Movements 4 - Labs CBC & Chem 7: 04/27/25 07:29 04/27/25 07:29 Labs: Abnormal Lab Results - Last 24 Hours (Table) 04/27/25 04/27/25 Range/Units 07:29 07:29 MPV 9.1 L (9.5-12.2) fL Glucose 117 H (74-99) mg/dL
--- NOTE | 2025-05-01 14:29 | CDI ---
Documentation Clarification Form Date: 05/01/2025 02:10:39 PM From: Denae Trinidad RN, CCDS Email: [email or web address] Admit Date: 04/23/2025 10:38:00 PM Patient Name: Samy Lowry V Visit Number: [id number] Discharge Date: 04/27/2025 10:25:00 AM ATTENTION: The Clinical Documentation Specialists (CDI) and [facility] Coding Staff appreciate your assistance in clarifying documentation. Please respond to the clarification below the line at the bottom and electronically sign. The CDI & [facility] Coding staff will review the response and follow-up if needed. Please note: Queries are made part of the Legal Health Record. If you have any questions, please contact the author of this message via ITS. Doctor Alexandr Oseguera Atrial Fibrillation maintained on Eliquis is documented in the progress notes. Additional clarification regarding the type of atrial fibrillation is requested. History/Risk Factors: Atrial Fibrillation, Hyperlipidemia, Hypertension. Presented with abdominal pain and found to have partial small bowel obstruction. Clinical Indicators: 04/24 H&P: "Abdominal pain secondary to partial small bowel obstruction NG tube in place. History of atrial fibrillation maintained on Eliquis currently on hold." 04/24 Surgery consult: "Patient does have a history of atrial fibrillation and last dose of Eliquis was Monday morning." 04/23 EKG: SR Treatment: Eliquis 5mg po BID 04/26-04/27; Metoprolol 25mg po 04/23; Metoprolol 25mg po x1 on 04/25; Metoprolol 25mg po 04/25-04/27 Please clarify the type of atrial fibrillation, if known: [ xxx ] Chronic [ ] Permanent [ ] Paroxysmal [ ] Persistent [ ] Other, please specify [ ] Unable to determine MTDD
== END 2025-04-27 10:25 | disposition home or self-care (01) | DRG 389 ==
LOC: EC 19:34 → 4SSUR 22:38
PROVIDERS: ADMIT Internal Medicine; ATTEND Internal Medicine
PROC: 0D9670Z Drainage of Stomach with Drainage Device, Via Natural or Artificial Opening (ICD-10-PCS; principal; 2025-04-24)
DX: K56.600 Partial intestinal obstruction, unspecified as to cause (principal); I48.20 Chronic atrial fibrillation, unspecified; E78.5 Hyperlipidemia, unspecified; I10 Essential (primary) hypertension; F32.A Depression, unspecified; F41.0 Panic disorder [episodic paroxysmal anxiety]; Z79.01 Long term (current) use of anticoagulants; Z79.899 Other long term (current) drug therapy; Z88.1 Allergy status to other antibiotic agents; Z87.891 Personal history of nicotine dependence
CPT/HCPCS: 36415; 71045; 71250; 74019; 74177; 80053; 81001; 83605; 83690; 85025; 93005; 96361; 96374; 96375; 99285